=== PATIENT | male | born 1950 | race Caucasian/White ===

== ENCOUNTER 2019-05-18 14:41 | Inpatient (IN) | payer MEDICARE, OTHER ==
[~2019-05-18] VITALS: Ht 177.8 cm; Wt 100.2 kg
[~2019-05-18 14:41] MED LIST: Percocet 7.5-31 EACH PO
[2019-05-18 15:23] LABS: BASOPHILS ABSOLUTE AUTO 0.05 K/mm3 (0.00-0.23); BASOPHILS PERCENT AUTO 0 % (0-2); EOSINOPHILS ABSOLUTE AUTO 0.01 K/mm3 (0.00-0.68); EOSINOPHILS PERCENT AUTO 0 % (0-6); Hematocrit 41.8 % (37.0-53.0); Hemoglobin 14.2 g/dL (13.5-17.5); IMMATURE GRAN PERCENT AUTO 1 % (0-1); LYMPHOCYTES ABSOLUTE AUTO 1.03 K/mm3 (0.84-5.20); LYMPHOCYTES PERCENT AUTO 3 % (21-46); MONOCYTES ABSOLUTE AUTO 2.31 K/mm3 (0.16-1.47); MONOCYTES PERCENT AUTO 8 % (4-13); Mean Corpuscular HGB 31.6 pg (26.0-34.0); Mean Corpuscular Volume 93 fL (80-100); Mean Platelet Volume 9.5 fL (9.1-12.4); NEUTROPHILS PERCENT AUTO 88 % (41-73); Platelet Count 250 K/mm3 (150-400); RDW Coefficient Variation 12.9 % (11.7-14.2); RDW Standard Deviation 44.3 fL (35.1-46.3); Red Blood Cell Count 4.49 M/mm3 (4.30-5.90)
[2019-05-18 15:35] LABS: Alanine Aminotransfer (ALT/SGP 19 U/L (12-78); Albumin, Blood 3.3 g/dL (3.4-5.0); Albumin/Globulin Ratio 0.8 (0.8-1.8); Alk Phos 81 U/L (50-136); Anion Gap 9 mmol/L (6-16); Aspartate Aminotrans (AST/SGOT 7 U/L (12-37); Blood Urea Nitrogen 22 mg/dL (8-24); Bun/Creatinine Ratio 22.5 (12.0-20.0); CO2, Blood 24 mmol/L (21-32); Calcium, Blood 9.1 mg/dL (8.5-10.1); Chloride, Blood 104 mmol/L (98-108); Creatinine, Blood 0.98 mg/dL (0.60-1.20); Globulin, Blood 4.4 g/dL (2.2-4.0); Glomerular Filtration Rate >60 (60-); Glucose, Blood 117 mg/dL (70-99); Potassium, Blood 3.8 mmol/L (3.5-5.5); Sodium, Blood 137 mmol/L (136-145); Total Protein, Blood 7.7 g/dL (6.4-8.2)
[2019-05-18 15:37] LABS: Source, Urine Catheter
[2019-05-18 16:37] LABS: Bilirubin, Urine Neg (Neg); Blood, Urine 1+ (Neg); Glucose Qualitative, Urine Neg (Neg); Ketones, Urine 3+ (Neg); Leukocyte Esterase, Urine Neg (Neg); Nitrite, Urine Neg (Neg); Protein, Urine 2+ (Neg); Specific Gravity, Urine 1.005 (1.003-1.022); Urobilinogen, Urine 3+ (Normal)
[2019-05-18 16:45] LABS: Appearance, Urine Clear (Clear); Color, Urine Yellow (P-Yellow)
[2019-05-18 16:46] LABS: Red Blood Cells, Urine 0-2 /hpf (0-2); Squamous Epithelial Cells Rare /hpf (Few); White Blood Cells, Urine 0-2 /hpf (0-5)
[2019-05-18 16:47] LABS: Bacteria Rare /hpf
[2019-05-18] MEDS ORDERED: LOSA25 PO (17:36)
--- NOTE | 2019-05-19 00:40 | NUR ---
PATIENT ARRIVED FROM THE ED @2037. HE IS INTERACTING WITH STAFF AND A GOOD HISTORIAN. STATES THAT HE IS HAVING PAIN IN HIS LOWER ABDOMEN FROM HIP TO HIP, HE STATED IT IS "NIKKI" IN NATURE, AND THAT IT WILL BE INTENSE THEN LET UP. hE HAS A HEALING HEAD INCISION FROM APRIL 2019 WHERE HE HAD A BENIGN TUMOR REMOVED. hE STATED THAT HE HAS BEEN IN PHYSICAL THERAPY AND GAINING HIS STRENGTH AND AGILITY.
[2019-05-19 03:49] LABS: BASOPHILS ABSOLUTE AUTO 0.03 K/mm3 (0.00-0.23); BASOPHILS PERCENT AUTO 0 % (0-2); EOSINOPHILS ABSOLUTE AUTO 0.01 K/mm3 (0.00-0.68); EOSINOPHILS PERCENT AUTO 0 % (0-6); Hematocrit 36.1 % (37.0-53.0); Hemoglobin 12.1 g/dL (13.5-17.5); IMMATURE GRAN ABSOLUTE AUTO 0.17 K/mm3 (0.00-0.10); IMMATURE GRAN PERCENT AUTO 1 % (0-1); LYMPHOCYTES ABSOLUTE AUTO 0.59 K/mm3 (0.84-5.20); LYMPHOCYTES PERCENT AUTO 3 % (21-46); MONOCYTES ABSOLUTE AUTO 1.39 K/mm3 (0.16-1.47); MONOCYTES PERCENT AUTO 8 % (4-13); Mean Corpuscular HGB 30.9 pg (26.0-34.0); Mean Corpuscular HGB Conc 33.5 g/dL (31.5-36.5); Mean Corpuscular Volume 92 fL (80-100); Mean Platelet Volume 9.6 fL (9.1-12.4); NEUTROPHILS ABSOLUTE AUTO 16.07 K/mm3 (1.96-9.15); NEUTROPHILS PERCENT AUTO 88 % (41-73); Platelet Count 197 K/mm3 (150-400); RDW Coefficient Variation 13.1 % (11.7-14.2); RDW Standard Deviation 44.2 fL (35.1-46.3); Red Blood Cell Count 3.91 M/mm3 (4.30-5.90); White Blood Cell Count 18.26 K/mm3 (4.00-11.30)
[2019-05-19 04:07] LABS: Anion Gap 7 mmol/L (6-16); Blood Urea Nitrogen 15 mg/dL (8-24); Bun/Creatinine Ratio 19.4 (12.0-20.0); CO2, Blood 25 mmol/L (21-32); Calcium, Blood 8.2 mg/dL (8.5-10.1); Chloride, Blood 105 mmol/L (98-108); Creatinine, Blood 0.77 mg/dL (0.60-1.20); Glomerular Filtration Rate >60 (60-); Glucose, Blood 111 mg/dL (70-99); Potassium, Blood 3.8 mmol/L (3.5-5.5); Sodium, Blood 137 mmol/L (136-145)
--- NOTE | 2019-05-19 06:04 | NUR ---
PATIENT IS EXPERIENCING 6/10 PAIN IN HIS ABDOMEN. HE HAS BEEN ABLE TO AMBULATE TO THE SEVERAL TIMES, 2 SMALL BM'S AND VOIDING. hE IS PLEASANT AND TALKATIVE. SCD'S ON WHILE IN BED. CALL LIGHT IN REACH.
--- NOTE | 2019-05-19 07:57 | NUR ---
pt sweating afebrile at this time pt stated pain is min 2-3/10 no nausea awaiting surg npo prn mouth care
--- NOTE | 2019-05-19 12:00 | NUR ---
dr lima ok cl diet no surg cont with iv abx
--- NOTE | 2019-05-19 15:56 | NUR ---
po norco given pt stated pain is min feeling a little better compared to this am
--- NOTE | 2019-05-19 18:00 | NUR ---
pt visiting with had questions re medications
--- NOTE | 2019-05-20 06:37 | NUR ---
SUMMARY PT HAS CONTINUED INTERMITTENTLY FEBRILE. REPORTS PAIN MEDS EFFECTIVE. VERB SLEEPING SATISF. VOIDING WITHOUT DIFF.TOLERATING PO LIQ.
--- NOTE | 2019-05-20 13:28 | NUR ---
dr lima in to see pt.
--- NOTE | 2019-05-20 19:24 | NUR ---
SUMMARY NO ACUTE CHANGES T/O SHIFT. MEDICATED ONCE DURING SHIFT FOR NAUSEA AND TWICE DURING SHIFT FOR PAIN PER ORDERS. PT INDEPENDENT IN ROOM. IV INFUSING W/O DIFFICULTY. CALL LIGHT IN REACH.
[2019-05-21 04:15] LABS: BASOPHILS ABSOLUTE AUTO 0.03 K/mm3 (0.00-0.23); BASOPHILS PERCENT AUTO 0 % (0-2); EOSINOPHILS ABSOLUTE AUTO 0.07 K/mm3 (0.00-0.68); EOSINOPHILS PERCENT AUTO 1 % (0-6); Hematocrit 32.1 % (37.0-53.0); Hemoglobin 10.8 g/dL (13.5-17.5); IMMATURE GRAN ABSOLUTE AUTO 0.08 K/mm3 (0.00-0.10); IMMATURE GRAN PERCENT AUTO 1 % (0-1); LYMPHOCYTES ABSOLUTE AUTO 0.51 K/mm3 (0.84-5.20); LYMPHOCYTES PERCENT AUTO 4 % (21-46); MONOCYTES ABSOLUTE AUTO 1.09 K/mm3 (0.16-1.47); MONOCYTES PERCENT AUTO 9 % (4-13); Mean Corpuscular HGB 31.1 pg (26.0-34.0); Mean Corpuscular HGB Conc 33.6 g/dL (31.5-36.5); Mean Corpuscular Volume 93 fL (80-100); Mean Platelet Volume 9.7 fL (9.1-12.4); NEUTROPHILS ABSOLUTE AUTO 9.99 K/mm3 (1.96-9.15); NEUTROPHILS PERCENT AUTO 85 % (41-73); Platelet Count 174 K/mm3 (150-400); RDW Coefficient Variation 13.1 % (11.7-14.2); RDW Standard Deviation 44.3 fL (35.1-46.3); Red Blood Cell Count 3.47 M/mm3 (4.30-5.90); White Blood Cell Count 11.77 K/mm3 (4.00-11.30)
[2019-05-21 04:34] LABS: Anion Gap 6 mmol/L (6-16); Blood Urea Nitrogen 9 mg/dL (8-24); Bun/Creatinine Ratio 11.8 (12.0-20.0); CO2, Blood 30 mmol/L (21-32); Calcium, Blood 8.1 mg/dL (8.5-10.1); Chloride, Blood 100 mmol/L (98-108); Creatinine, Blood 0.76 mg/dL (0.60-1.20); Glomerular Filtration Rate >60 (60-); Glucose, Blood 145 mg/dL (70-99); Potassium, Blood 3.3 mmol/L (3.5-5.5); Sodium, Blood 136 mmol/L (136-145)
--- NOTE | 2019-05-21 06:42 | NUR ---
PT HAD NO ACUTE CHANGES T/O NIGHT. T-MAX 1002. OTHER VSS. PAIN MGD PER EMAR W/REP RELIEF. PT HAD NO C/O N/V. PT VOIDING URINE W/O DIFFICULTY, IS PASSING FLATUS, NO BM THIS SHIFT. IVF AND ABX CONT PER ORDERS. PT USING CALL LIGHT FOR ASSISTANCE, WILL CONT TO MONITOR UNTIL REP GIVEN TO ONCOMING RN.
--- NOTE | 2019-05-21 17:21 | NUR ---
SUMMARY NO ACUTE CHANGES T/O SHIFT. MEDICATED PT PER ORDERS FOR PAIN. PT TOOK ONE NORCO THIS AFTRNOON AND REQUIRED SECOND APPROXIMTELY TWO HOURS LATER DUE TO BREAKTHROUGH PAIN. REQUESTS TWO NORCO PER ORDERS NEXT TIME PAIN MEDS AVAILABLE. INDEPENDENT IN ROOM. IV INFUSING W/O DIFFICULTY. USES CALL LIGHT APPROPRIATELY.
--- NOTE | 2019-05-22 00:30 | NUR ---
TEMP: PT TEMP 102.3. PT REP FEELING HOT AND HAVING A HEADACHE. ROOM TEMP TURNED DOWN, BLANKET REMOVED, COOL CLOTH PLACED ON FOREHEAD. TORADOL GIVEN. WILL MONITOR FOR EFFECTIVENESS.
--- NOTE | 2019-05-22 07:23 | NUR ---
PT T-MAX 102.3, RESOLVED W/MEDS AND NON PHARM COOLING MEASURES. OTHER VSS. PAIN MGD W/2 NORCO+TORADOL W/REP RELIEF. ABD MUCH MORE FIRM AND DISTENDED THIS AM. PT GERMANIA CLEAR LIQ, NO C/O N/V, IS PASSING FLATUS. PT AMB INDEP, IS USING CALL LIGHT FOR ASSISTANCE. CLINIMIX AND ABX CONT PER ORDERS. REP GIVEN TO DAY RN.
--- NOTE | 2019-05-22 17:38 | NUR ---
SHIFT SUMMARY PAIN HAS BEEN MANAGED, HAS BEEN UP IND IN THE ROOM, VOIDING WELL, PASSING GAS BUT DECLINES BM. CONTINUES TO BE DISTENDED. PLAN FOR CT IN AM.
--- NOTE | 2019-05-22 21:13 | NUR ---
PT GIVEN FIRST DOSE OF ORAL CONTRAST.
--- NOTE | 2019-05-22 21:27 | NUR ---
REPORT GIVEN TO BIJAN MENJIVAR
--- NOTE | 2019-05-22 21:30 | NUR ---
2130: RECEIVED BEDSIDE REPORT FROM PREVIOUS RN AND ASSUMED CARE. PT RESTING COMFORTABLY IN BED WITH CALL LIGHT IN REACH AND DENIES NEED @ THIS TIME.
[2019-05-23 04:27] LABS: BASOPHILS ABSOLUTE AUTO 0.03 K/mm3 (0.00-0.23); BASOPHILS PERCENT AUTO 0 % (0-2); EOSINOPHILS ABSOLUTE AUTO 0.09 K/mm3 (0.00-0.68); EOSINOPHILS PERCENT AUTO 1 % (0-6); Hematocrit 32.3 % (37.0-53.0); Hemoglobin 10.6 g/dL (13.5-17.5); Mean Corpuscular HGB 31.3 pg (26.0-34.0); Mean Corpuscular HGB Conc 32.8 g/dL (31.5-36.5); Mean Corpuscular Volume 95 fL (80-100); Mean Platelet Volume 9.6 fL (9.1-12.4); Platelet Count 214 K/mm3 (150-400); RDW Coefficient Variation 12.8 % (11.7-14.2); RDW Standard Deviation 45.2 fL (35.1-46.3); Red Blood Cell Count 3.39 M/mm3 (4.30-5.90); White Blood Cell Count 10.93 K/mm3 (4.00-11.30)
[2019-05-23 04:29] LABS: IMMATURE GRAN ABSOLUTE AUTO 0.08 K/mm3 (0.00-0.10); IMMATURE GRAN PERCENT AUTO 1 % (0-1); LYMPHOCYTES ABSOLUTE AUTO 0.88 K/mm3 (0.84-5.20); LYMPHOCYTES PERCENT AUTO 8 % (21-46); MONOCYTES ABSOLUTE AUTO 1.21 K/mm3 (0.16-1.47); MONOCYTES PERCENT AUTO 11 % (4-13); NEUTROPHILS ABSOLUTE AUTO 8.64 K/mm3 (1.96-9.15); NEUTROPHILS PERCENT AUTO 79 % (41-73)
[2019-05-23 04:44] LABS: Anion Gap 4 mmol/L (6-16); Blood Urea Nitrogen 11 mg/dL (8-24); Bun/Creatinine Ratio 13.3 (12.0-20.0); CO2, Blood 32 mmol/L (21-32); Calcium, Blood 8.2 mg/dL (8.5-10.1); Chloride, Blood 100 mmol/L (98-108); Creatinine, Blood 0.83 mg/dL (0.60-1.20); Glomerular Filtration Rate >60 (60-); Glucose, Blood 140 mg/dL (70-99); Potassium, Blood 3.9 mmol/L (3.5-5.5); Sodium, Blood 136 mmol/L (136-145)
--- NOTE | 2019-05-23 06:10 | NUR ---
0610: PT TO IMAGING VIA WC WITH LAST 240ML CUP OF IODINE CONTRAST. LINENS CHANGED PER PT REQUEST. AWAIT RETURN.
--- NOTE | 2019-05-23 07:24 | NUR ---
SUMMARY: ADMIT DAY [address] JONES SERVICE. VSS, AFEBRILE, VOIDING DARK YELLOW URINE. CONTINUE CLINIMIX INFUSION AND TOLERATING CLEAR LIQ DIET. PAIN WELL CONTROLLED WITH 1 TAB NORCO. PT HAD REPEAT CT SCAN THIS MORNING AND AWAIT FINDINGS.
--- NOTE | 2019-05-23 19:04 | NUR ---
SHIFT SUMMARY PT HAS DONE WELL TODAY. PASSING GAS BUT DECLINES BM. PAIN WELL MANAGED. PLAN FOR PICC LINE PLACED TOMORROW.
--- NOTE | 2019-05-24 19:55 | NUR ---
SHIFT SUMMARY PT UNSUCCESSFULL TO GET PICC AFTER 2 ATTEMPTS. HAD BM x 3. UP IN ROOM BUT NOT INTERESTED IN WALKING IN HALLWAYS. PAIN WELL MANAGED. AFEBRILE.
[2019-05-25 05:27] LABS: Triglycerides 216 mg/dL (30-160)
--- NOTE | 2019-05-25 06:17 | NUR ---
PT VSS T/O NIGHT; T-MAX 99.1, OTHER VSS. PAIN MGD PER EMAR W/REP RELIEF. ABD MOD DISTENDED, TENDER IN RLQ. PT GERMANIA CLEAR LIQ PO, NO C/O N/V. PT PASSING FLATUS, IS VOIDING URINE W/O DIFFICULTY. CLINIMIX AND ABX CONT PER ORDERS. PT UP INDEP IN ROOM, IS USING CALL LIGHT FOR ASSISTANCE, WILL CONT TO MONITOR UNTIL REP GIVEN TO ONCOMING RN.
--- NOTE | 2019-05-25 13:26 | NUR ---
PT REFUSING TO AMBULATE IN [place] W/DENTAL ASSOCIATE REPORTING FEELING POORLY. ENCOURAGED PT TO GO FOR WALK TO GET OUT OF ROOM. REFUSED WHEN DENTAL ASSOCIATE WENT IN TO AMBULATE W/HIM.
--- NOTE | 2019-05-25 17:56 | NUR ---
SUMMARY NO ACUTE CHANGES T/O SHIFT. PT APPEARS WITHDRAWN. SUGGESTED PT AMBULATE IN [place] TO GET OUT OF ROOM; PT DECLINED. MEDICATED PER ORDERS FOR PAIN TO LOWER ABD. PT SLEPT OFF AND ON DURING SHIFT. S.O. NOW AT BEDSIDE. PT INDEPENDENT IN ROOM.
--- NOTE | 2019-05-26 06:26 | NUR ---
PT VSS T/O NIGHT. NO CHANGES IN ABD DISTENTION. PT HAD NO C/O N/V, REP STOOL BECOMING SOMEWHAT MORE FORMED AFTER FULL LIQ PO. PAIN MGD W/TORADOL W/REP RELIEF. CLINIMIX CONT PER ORDERS. PT AMB INDEP IN ROOM, AMB OUTSIDE OF ROOM ENCOURAGED FOR PHYSICAL AND EMOTIONAL WELLBEING. PT USING CALL LIGHT FOR ASSISTANCE, WILL CONT TO MONITOR UNTIL REP GIVEN TO ONCOMING RN.
--- NOTE | 2019-05-26 09:54 | NUR ---
PT IN SHOWER
--- NOTE | 2019-05-26 15:29 | NUR ---
DEPRESSED PT STATES FEELING DEPRESSED. ENCOURAGED PT TO OPEN SHADES AND GO FOR WALK TO GET OUT OF ROOM. PT STATED WOULD AMBULATE IN HALLS W/SPOUSE WHEN SHE ARRIVES.
--- NOTE | 2019-05-26 15:58 | NUR ---
TURNED OVER CARE TO BRENDON Lyon RN.
--- NOTE | 2019-05-26 16:30 | NUR ---
assumed care of patient. patient denies any needs at this time
--- NOTE | 2019-05-26 18:15 | NUR ---
SUMMARY PATIENT REPORTS PAIN IS CURRENTLY 1/10. DENIES NAUSEA- GERMANIA SMALL AMOUNTS OF FULL LIQUID WITHOUT NAUSEA.
--- NOTE | 2019-05-27 04:26 | NUR ---
PATIENT HAS RESTED MOST OF THE NIGHT, REPOSITIONING SELF NEEDED, INDEPENDENT TO THE BR. ABDOMEN IS MILDLY DESTENDED WITH ACTIVE BTS. 18 G IV PLACED IN THE RT FA, LT FA/AC IV REMOVED FOR PAIN AT THE SITE.
--- NOTE | 2019-05-27 15:55 | NUR ---
SHIFT SUMMARY NO ACUTE CHANGES THIS SHIFT. PT CONTINUES TO REPORT THAT HE FEELS BETTER. VSS. PT DENIES NEED FOR PAIN MEDICATIONS T/O SHIFT. GERMANIA FULL LIQ DIET AND ADVANCING TO REG DIET FOR DINNER. PT PASSING FLATUS AND HAVING BMS. INDEP IN ROOM. CLINIMX/LIPIDS INFUSING PER ORDERS. PT USES CALL LIGHT APPROPRIATELY.
--- NOTE | 2019-05-28 05:37 | NUR ---
PATIENT HAS RESTED QUIETLY THROUGHT SHIFT. NO ACUTE CHANGES IN CONDITION. UP IN ROOM WHEN NEEDED. HAS DENIED PAIN AND NEED FOR MEDICATION THROUGHOUT THE SHIFT.
--- NOTE | 2019-05-28 16:04 | NUR ---
SHIFT SUMMARY NO ACUTE CHANGES THIS SHIFT. PT CONT TO DENY PAIN. PT GERMANIA REG DIET. IV IS SL. PT CONT TO PAS GAS HAVE BMS. INDEP IN ROOM. USES CALL LIGHT APPROPRIATELY. PLAN IS FOR PT TO DISCHARGE HOME TOMORROW.
[2019-05-29] MEDS ORDERED: AMOCLA875 PO (12:22)
--- NOTE | 2019-05-29 13:31 | NUR ---
REVIEWED DC INSTRUCTIONS W/PT. VERBALIZED UNDERSTANDING OF DC INSTRUCTIONS. CALLED PRESCRIPTION TO [facility] PER PT REQUEST. PT AWAITING RIDE. CALL LIGHT IN REACH.
== END 2019-05-29 13:58 | disposition home or self-care (01) | DRG 871 ==
LOC: ER 14:41 → SURS 17:16
PROVIDERS: Emergency Medicine; ADMIT Surgery
DX: A41.9 Sepsis, unspecified organism (principal); K35.32 Acute appendicitis with perforation, localized peritonitis, and gangrene, without abscess; I10 Essential (primary) hypertension; Z85.828 Personal history of other malignant neoplasm of skin; Z87.891 Personal history of nicotine dependence
CPT/HCPCS: 36415; 74177; 80048; 80053; 81001; 83605; 84478; 85025; 87040; 87086; 93005; 93010; 96361; 96365-59; 96375; 99285-25; A9270-GY; J1885; J2405; J2543; J3010; J7120; Q9967

== ENCOUNTER 2020-05-07 05:33 | Inpatient (IN) | payer MEDICARE, OTHER ==
[~2020-05-07] VITALS: Ht 177.8 cm; Wt 87.0 kg
[~2020-05-07 05:33] MED LIST changes: +AMOCLA875 PO; +LOSA25 PO
[2020-05-07 06:42] LABS: BASOPHILS ABSOLUTE AUTO 0.04 K/mm3 (0.00-0.23); BASOPHILS PERCENT AUTO 1 % (0-2); EOSINOPHILS ABSOLUTE AUTO 0.04 K/mm3 (0.00-0.68); EOSINOPHILS PERCENT AUTO 1 % (0-6); Hematocrit 43.5 % (37.0-53.0); Hemoglobin 14.3 g/dL (13.5-17.5); IMMATURE GRAN ABSOLUTE AUTO 0.03 K/mm3 (0.00-0.10); IMMATURE GRAN PERCENT AUTO 0 % (0-1); LYMPHOCYTES ABSOLUTE AUTO 0.87 K/mm3 (0.84-5.20); LYMPHOCYTES PERCENT AUTO 10 % (21-46); MONOCYTES ABSOLUTE AUTO 0.95 K/mm3 (0.16-1.47); MONOCYTES PERCENT AUTO 11 % (4-13); Mean Corpuscular HGB 28.4 pg (26.0-34.0); Mean Corpuscular HGB Conc 32.9 g/dL (31.5-36.5); Mean Corpuscular Volume 86 fL (80-100); Mean Platelet Volume 9.3 fL (9.1-12.4); NEUTROPHILS ABSOLUTE AUTO 6.58 K/mm3 (1.96-9.15); NEUTROPHILS PERCENT AUTO 77 % (41-73); Platelet Count 320 K/mm3 (150-400); RDW Coefficient Variation 13.5 % (11.7-14.2); RDW Standard Deviation 42.5 fL (35.1-46.3); Red Blood Cell Count 5.04 M/mm3 (4.30-5.90); White Blood Cell Count 8.51 K/mm3 (4.00-11.30)
[2020-05-07 06:54] LABS: International Normalized Ratio 1.02; Prothrombin Time Results 10.9 Sec (9.7-11.5)
[2020-05-07 07:07] LABS: Alanine Aminotransfer (ALT/SGP 13 U/L (12-78); Albumin, Blood 3.2 g/dL (3.4-5.0); Albumin/Globulin Ratio 0.8 (0.8-1.8); Alk Phos 84 U/L (50-136); Anion Gap 7 mmol/L (6-16); Aspartate Aminotrans (AST/SGOT 12 U/L (12-37); Bilirubin, Total 0.6 mg/dL (0.1-1.0); Blood Urea Nitrogen 14 mg/dL (8-24); Bun/Creatinine Ratio 16.8 (12.0-20.0); CO2, Blood 26 mmol/L (21-32); Calcium, Blood 8.5 mg/dL (8.5-10.1); Chloride, Blood 107 mmol/L (98-108); Creatinine, Blood 0.83 mg/dL (0.60-1.20); Globulin, Blood 3.9 g/dL (2.2-4.0); Glomerular Filtration Rate >60 (60-); Glucose, Blood 119 mg/dL (70-99); Potassium, Blood 3.4 mmol/L (3.5-5.5); Sodium, Blood 140 mmol/L (136-145); Total Protein, Blood 7.1 g/dL (6.4-8.2)
--- NOTE | 2020-05-07 17:16 | NUR ---
EPIDURAL AT APPROX 1630, PT REPORTED UNCONTROLLABLE SHIVERING AND DENIED BEING COLD. VSS AND AFEBRILE. DR. DAVIDSON ROUNDING ON UNIT AND ASSESSED PT. EPIDURAL INFUSION TURNED OFF AT 1655 PER VERBAL ORDER BY DR. DAVIDSON. DR. DAVIDSON NOTIFIED ANESTHESIOLOGIST AND ANESTHESIA TO REMOVE EPIDURAL TOMORROW MORNING. SINCE EPIDURAL TURNED OFF, PT REPORTS DECREASED SHIVERING. PT LEVEL OF SENSATION IMPROVING AT T6-L2. PT ABLE TO WIGGLE TOES AND MOVE BLE SLIGHTLY. PT CONT TO DENY PAIN. NEW ORDERS BEING PLACED BY DR. DAVIDSON. WILL CONT TO MONITOR.
--- NOTE | 2020-05-07 17:26 | NUR ---
SHIFT SUMMARY S/P LAP COLOSTOMY. EPIDURAL RECENTLY TURNED OFF (SEE EPIDURAL NOTE) AND ANESTHESIA TO COME IN THE MORNING TO REMOVE CATHETER. DERMATOMES IMPROVING AT T6-L2. PT NOW ABLE TO WIGGLE TOES AND MOVE BLE SLIGHTLY. PT DENIES PAIN. LAP SITES TO ABD X3 REMAIN CDI. COLOSTOMY WITH MODERATE AMOUNTS OF BROWN LIQ STOOL. IVF + ABX PER ORDERS. PT GERMANIA ICE CHIPS. AT BEDSIDE FOR SUPPORT. CALL LIGHT WITHIN REACH.
--- NOTE | 2020-05-08 04:16 | NUR ---
SHIFT SUMMARY: PT POD#1 FOR LAP COLOSTOMY. LAP SITE X3 C/D/I WITH SCANT AMOUNT OF DRY BLOODY DRG TO GAUZE. OSTOMY PRODUCING FLATUS AND MODERATE AMOUNT OF LIQ BROWN STOOL. EMPTIED APPROX 400CC. PAIN BEING MANAGED WITH 25MCG FENTANYL. FEBRILE IN BEGINNING OF THE SHIFT. MEDICATED WITH TORADOL AND TYLENOL WHICH WAS EFFECTIVE. EPIDURAL REMAINS IN PLACE BUT IS NOT BEING USED. PLAN FOR ANESTHESIOLOGIST TO PULL IT OUT TODAY. PT GERMANIA SMALL AMOUNTS OF SIPS+CHIPS. DENIES N/V. FLUIDS INFUSING PER EMAR. MURRAY DRAINING DARK KRIS URINE WITH MINIMAL OUTPUT THIS SHIFT. PT EDUCATED ON OSTOMY CARE TO INCLUDE APPLIANCE CHANGE AND BURPING OF BAG.
[2020-05-08 04:17] LABS: BASOPHILS ABSOLUTE AUTO 0.03 K/mm3 (0.00-0.23); BASOPHILS PERCENT AUTO 0 % (0-2); EOSINOPHILS PERCENT AUTO 0 % (0-6); Hematocrit 45.8 % (37.0-53.0); Hemoglobin 14.6 g/dL (13.5-17.5); IMMATURE GRAN ABSOLUTE AUTO 0.02 K/mm3 (0.00-0.10); IMMATURE GRAN PERCENT AUTO 0 % (0-1); LYMPHOCYTES ABSOLUTE AUTO 0.57 K/mm3 (0.84-5.20); LYMPHOCYTES PERCENT AUTO 6 % (21-46); MONOCYTES ABSOLUTE AUTO 1.14 K/mm3 (0.16-1.47); MONOCYTES PERCENT AUTO 12 % (4-13); Mean Corpuscular HGB 27.9 pg (26.0-34.0); Mean Corpuscular HGB Conc 31.9 g/dL (31.5-36.5); Mean Corpuscular Volume 88 fL (80-100); Mean Platelet Volume 9.2 fL (9.1-12.4); NEUTROPHILS ABSOLUTE AUTO 8.07 K/mm3 (1.96-9.15); NEUTROPHILS PERCENT AUTO 82 % (41-73); Platelet Count 284 K/mm3 (150-400); RDW Coefficient Variation 13.8 % (11.7-14.2); RDW Standard Deviation 44.2 fL (35.1-46.3); Red Blood Cell Count 5.23 M/mm3 (4.30-5.90); White Blood Cell Count 9.83 K/mm3 (4.00-11.30)
[2020-05-08 04:36] LABS: Anion Gap 5 mmol/L (6-16); Blood Urea Nitrogen 16 mg/dL (8-24); Bun/Creatinine Ratio 16.2 (12.0-20.0); CO2, Blood 28 mmol/L (21-32); Calcium, Blood 7.8 mg/dL (8.5-10.1); Chloride, Blood 108 mmol/L (98-108); Creatinine, Blood 0.99 mg/dL (0.60-1.20); Glomerular Filtration Rate >60 (60-); Glucose, Blood 128 mg/dL (70-99); Potassium, Blood 3.9 mmol/L (3.5-5.5); Sodium, Blood 141 mmol/L (136-145)
--- NOTE | 2020-05-08 07:55 | NUR ---
PT REPORTS PAIN 04/19 INT REQ PAIN MEDS PT EPIDURAL IS IN BUT MED IS TURNED OFF DISCUSSED OSTOMY CARE WITH PT WILL BRING HIM HANDOUTS TODAY AND SUPPLIES TO PRACTICE WITH PT PASSING FLATUS AND STOOL WHILE IN THE ROOM MIO FARIAS PT STATED HE STILL FEELS DIST NO NAUSEA
--- NOTE | 2020-05-08 10:00 | NUR ---
OSTOMY TEACHING DONE WITH PT AND HIS SUPPLIES GIVEN
--- NOTE | 2020-05-08 11:41 | NUR ---
update given to anesthesia to come and see pt to determine pulling epidural or restarting it
--- NOTE | 2020-05-08 12:13 | NUR ---
NEW OSTOMY APPLIANCE PLACED PT ASKED QUESTIONS AT BEDSIDE ALSO WATCHED
--- NOTE | 2020-05-08 16:47 | NUR ---
talked to dr henderson by to see pt req a sales development coordinator for the pain
--- NOTE | 2020-05-09 05:04 | NUR ---
POD 2 S/P LAP COLOSTOMY. PT HAS DONE WELL DURING NIGHT. PAIN IS MANAGED WELL, NO N/V, OSTOMY PRODUCING STOOL AND FLATUS. HAS BEEN TOLERATING SIP AND CHIPS. LAP SITE CDI. VSS AND AFEBRILE THIS MORNING. WILL DC MURRAY THIS AM. PLAN ON INCREASING MOBILITY TODAY AND CONT TO ENCOURAGE TCDB AND I.S. CALL LIGHT IN REACH.
--- NOTE | 2020-05-09 14:40 | NUR ---
Patient is lying in bed and and alert. Patient's , Litzy, is bedside. Patient is emotional and shares personal stories about family, his fears and his hopes. Both patient and Litzy admit to not processing the news and prognosis well. They explain about the complicated grief they feel due to multiple loss of family memebers, the sudden medical issues that Litzy's mom is dealing with and patient's recent medical conditions. Patient talks about his nani in a very raw and honest way and definately finds hope and strength in it. I will continue to help patient and Litzy process what it will all mean to them going forward and help equip them with the emotional and spiritual resources they need. I normalize patient's experience, reinforce helpful attitudes and practices and provide therapeutic listening, pastoral licensed professional counselor and prayer. Patient responds well and shows signs of being encouraged and more hopeful. I will continue to remain available to patient and family.
--- NOTE | 2020-05-09 18:13 | NUR ---
SHIFT SUMMARY PT A&OX4, VSS, POD2 DIVERTING LOOP COLOSTOMY W/GOOD OUTPUT. PAIN MANAGED WITH FENT GAS PIT WORKER. GERMANIA SIPS AND ICE CHIPS. VOIDING WELL. AMB SBA. WILL REPORT TO ONCOMING KELLY THAKKAR.
--- NOTE | 2020-05-10 05:59 | NUR ---
SHIFT SUMMARY HAS RESTED WELL THIS SHIFT. HAS HAD NO FEVER UNTIL AM VS SHOWING 100.1 TEMPORALLY. WILL MEDICATE PER EMAR. LLQ COLOSTOMY IS PRODUCING BROWN LIQUID STOOL AND FLATUS. ABLE TO AMBULATE TO BATHROOM WITH STANDBY ASSIST, TOLERATING WELL. DENIES PAIN, DISCOMFORT, OR FURTHER NEEDS AT THIS TIME. SAFETY MEASURES IN PLACE. WILL CONTINUE TO MONITOR.
[2020-05-10 08:35] LABS: BASOPHILS ABSOLUTE AUTO 0.01 K/mm3 (0.00-0.23); BASOPHILS PERCENT AUTO 0 % (0-2); EOSINOPHILS ABSOLUTE AUTO 0.05 K/mm3 (0.00-0.68); EOSINOPHILS PERCENT AUTO 0 % (0-6); Hematocrit 39.7 % (37.0-53.0); IMMATURE GRAN ABSOLUTE AUTO 0.13 K/mm3 (0.00-0.10); IMMATURE GRAN PERCENT AUTO 1 % (0-1); LYMPHOCYTES ABSOLUTE AUTO 0.52 K/mm3 (0.84-5.20); LYMPHOCYTES PERCENT AUTO 4 % (21-46); MONOCYTES ABSOLUTE AUTO 1.14 K/mm3 (0.16-1.47); MONOCYTES PERCENT AUTO 8 % (4-13); Mean Corpuscular HGB 28.1 pg (26.0-34.0); Mean Corpuscular HGB Conc 32.7 g/dL (31.5-36.5); Mean Corpuscular Volume 86 fL (80-100); Mean Platelet Volume 9.2 fL (9.1-12.4); NEUTROPHILS ABSOLUTE AUTO 12.55 K/mm3 (1.96-9.15); NEUTROPHILS PERCENT AUTO 87 % (41-73); Platelet Count 283 K/mm3 (150-400); RDW Coefficient Variation 14.1 % (11.7-14.2); RDW Standard Deviation 44.8 fL (35.1-46.3); Red Blood Cell Count 4.62 M/mm3 (4.30-5.90)
--- NOTE | 2020-05-10 12:58 | NUR ---
Spiritual care visit conducted. Upon receiving a patient request for spiritual care, I visit patient. Patient talks about personal struggles centered around finding himself in medical circustances that have deep impact on his family and how they effect how he sees himself. The spiritual plan of care is to help patient explore new sources of dignity and value. I listen empathically, and provide pastoral counselor camp and prayer. Patient responds well and shows signs of increased courage and sense of self worth. I will continue to remain available to patient and family.
--- NOTE | 2020-05-10 14:12 | NUR ---
1245 TO RADIOLOGY PER DYLON
--- NOTE | 2020-05-10 15:34 | NUR ---
1515 returned to room from radiology, drain in place with 500 ml clear lizzette fluid emptied at this time
--- NOTE | 2020-05-10 18:28 | NUR ---
SUMMARY PT REPORTS GOOD PAIN CONTROL WITIH PODIATRIC TECHNICIAN. ABD DRAIN WITH 1700 ML CLEAR KRIS OUTPUT SINCE PLACED. PT TEARFUL AT TIMES BUT REPORTS HE WISHES TO HAVE CHEMO AND FIGHT HIS CANCER
[2020-05-11 04:45] LABS: BASOPHILS ABSOLUTE AUTO 0.02 K/mm3 (0.00-0.23); BASOPHILS PERCENT AUTO 0 % (0-2); EOSINOPHILS ABSOLUTE AUTO 0.07 K/mm3 (0.00-0.68); EOSINOPHILS PERCENT AUTO 1 % (0-6); Hematocrit 40.1 % (37.0-53.0); IMMATURE GRAN ABSOLUTE AUTO 0.06 K/mm3 (0.00-0.10); IMMATURE GRAN PERCENT AUTO 1 % (0-1); LYMPHOCYTES ABSOLUTE AUTO 0.51 K/mm3 (0.84-5.20); LYMPHOCYTES PERCENT AUTO 4 % (21-46); MONOCYTES PERCENT AUTO 11 % (4-13); Mean Corpuscular HGB 28.1 pg (26.0-34.0); Mean Corpuscular HGB Conc 32.4 g/dL (31.5-36.5); Mean Corpuscular Volume 87 fL (80-100); Mean Platelet Volume 10.2 fL (9.1-12.4); NEUTROPHILS ABSOLUTE AUTO 10.62 K/mm3 (1.96-9.15); NEUTROPHILS PERCENT AUTO 84 % (41-73); Platelet Count 262 K/mm3 (150-400); RDW Coefficient Variation 14.2 % (11.7-14.2); RDW Standard Deviation 45.1 fL (35.1-46.3); Red Blood Cell Count 4.62 M/mm3 (4.30-5.90); White Blood Cell Count 12.68 K/mm3 (4.00-11.30)
[2020-05-11 05:07] LABS: Anion Gap 6 mmol/L (6-16); Blood Urea Nitrogen 15 mg/dL (8-24); Bun/Creatinine Ratio 27.8 (12.0-20.0); CO2, Blood 25 mmol/L (21-32); Calcium, Blood 8.1 mg/dL (8.5-10.1); Chloride, Blood 104 mmol/L (98-108); Creatinine, Blood 0.54 mg/dL (0.60-1.20); Glomerular Filtration Rate >60 (60-); Glucose, Blood 132 mg/dL (70-99); Potassium, Blood 3.6 mmol/L (3.5-5.5); Sodium, Blood 135 mmol/L (136-145)
--- NOTE | 2020-05-11 05:29 | NUR ---
SHIFT SUMMARY: NABIL REPORTS ADEQUATE PAIN CONTROL WITH TORADOL AND THE STRAW BALER. HE STATES THAT THE OUTPUT THROUGH HIS OSTOMY IS SIGNIFICANTLY DECREASED AND THAT HE IS NOT PASSING FLATUS. THERE WAS A SMALL AMOUNT OF LIQUID STOOL OUTPUT THROUGH THE OSTOMY THIS SHIFT. HE IS TOLERATING SIPS AND CHIPS WELL. HE IS LYING IN BED WITH THE CALL LIGHT IN REACH. WILL REPORT TO JIM MOORE RN.
--- NOTE | 2020-05-11 17:27 | NUR ---
DR MARTIN HERE TO SEE PT.
--- NOTE | 2020-05-11 17:27 | NUR ---
DISCUSSED PT'S STATUS INCLUDING ABD DISTENTION, PERITONEAL DRAIN AND OUTPUT.
--- NOTE | 2020-05-11 17:43 | NUR ---
DR MARTIN REPORTS STOMA RETRACTING, REPORTS GOING TO TAKE PT BACK TO SURGERY, NEW OSTOMY BAG PLACED TO OSTOMY APPLIANCE PER DR HOWARD. WILL DISCUSS WITH WIRE RIGGER.
--- NOTE | 2020-05-11 17:53 | NUR ---
PT REPORTS TALKING TO AND FRIENDS REGARDING GOING BACK IN TO SURGERY PER DR MARTIN.
--- NOTE | 2020-05-11 18:13 | NUR ---
DR MARTIN HERE TO SEE PT, FAMILY PRESENT. DR MARTIN PLANNING TO TAKE PT BACK TO OR [facility]. ANESTHESIA HERE WELL.
--- NOTE | 2020-05-11 19:01 | NUR ---
PT OUT OF ROOM IN PT'S BED WITH OTHER STAFF TO HAVE PROCEDURE, RN UPDATED ON PT'S STATUS INCLUDING MEDICATIONS GIVEN TODAY. FAMILY PRESENT.
--- NOTE | 2020-05-11 19:03 | NUR ---
PT BEING PICKED UP BY SURGICAL STAFF.
--- NOTE | 2020-05-11 22:26 | NUR ---
PT ARRIVES TO ICU 1 FROM OR FOR RECOVERY. AROUSABLE TO VERBAL STIMULI AND STATES THAT HE FEELS LIKE HE IS IN THE WRONG HOSPITAL, HOWEVER DOES ASK IF HE IS STILL AT [facility] AND NODS UNDERSTANDING WHEN EXPLAINED THAT HE IS IN ICU FOR RECOVERY BUT WILL BE MOVED BACK OUT TO HIS REGULAR ROOM AFTER POST ANESTHESIA RECOVERY IS COMPLETE. LUNGS ARE CLEAR WITH DIM BASES BILAT, SATS ARE HIGH 90S WITH OXYGEN VIA NONREBREATHER MASK AT 11 L/MIN, EXHALE IS NOTED TO BE A MOANED "OW" WITH EACH BREATH, PT RATES PAIN 8/10 AND DESCRIBES BURNING TO LEFT LOWER QUADRANT. HRR, SINUS NOTED ON MONITOR, RATE 80-90S, PRESSURES MAINTAINING AT THIS TIME, SKIN IS PWD, PULSES ARE FULL X 4 EXTREMITIES, BRISK CAP REFILL, NO EDEMA IS NOTED. ABD DISTENDED, HYPOACTIVE BOWEL TONES, TENDER TO LIGHT PALP. WOUNDVAC RAMON DRESSING TO MIDLINE ABD MALECOT DRAIN IN PLACE AT INFERIOR ASPECT OF INCISION TO MIDLINE, NO DRAINAGE IS NOTED IN COLLECTION BAG AT THIS TIME, ABDIRAHMAN DRAIN TO PREV OSTOMY SITE AT LLQ, DRAINING SANGUINOUS FLUID AT THIS TIME, URESIL DRAIN TO RIGHT ABD REPORTED FROM PRIOR TO OR, SEROUS FLUID PRESENT IN COLLECTION CONTAINER. NEW OSTOMY SITE TO LEFT MID ABD, STOMA IS PINK AND MOIST, SMALL AMOUNT OF SANGUINOUS DRAINAGE IS PRESENT IN APPLIANCE. MURRAY CATH IN PLACE DRAINING CLEAR KRIS URINE. IV X 2 TO RIGHT FOREARM, SITES WNL.
--- NOTE | 2020-05-11 23:20 | NUR ---
RECIEVED REPORT FROM ICU NURSE, CATALINO HALL. STATES WILL BE TRANSFERRING BACK TO SURGICAL FLOOR SOON.
--- NOTE | 2020-05-11 23:25 | NUR ---
PT MEETS PACU DISCHARGE CRITERIA, AWAKE AND CONVERSATIONAL, SPEAKING IN FULL SENTENCES AND STATES THAT HE IS FEELING MUCH BETTER THAN PRIOR TO OR TODAY. PAIN IS CURRENTLY RATED AT 3/10 AFTER 2 SEPARATE DOSES OF FENTANYL 50 MCG IV. REPORT TO ANA THAKKAR
--- NOTE | 2020-05-12 06:38 | NUR ---
SHIFT SUMMARY: DAMASO RETURNED FROM SURGERY AT APPROX 2330. HE HAS TWO NEW DRAINS AND A NEW OSTOMY. HE HAS BEEN RESTING COMFORTABLY FOR THE MAJORITY OF THE TIME SINCE RETURNING. HE AROUSES EASILY AND RESPONDS APPROPRIATELY. IV X 2 TO R FA PATENT. HE IS ABLE TO MAKE HIS NEEDS KNOWN. PAS IN PLACE. DR. MARTIN GAVE ORDER TO RESTART OPTO MECHANICAL ENGINEER UNDER SAME PARAMETERS. VSS, NO ACUTE EVENTS OVERNIGHT. HE IS LYING IN BED WITH 3 RAILS UP AND THE CALL LIGHT IN REACH. WILL REPORT TO DAY SHIFT RN.
--- NOTE | 2020-05-12 07:32 | NUR ---
DR MARTIN HERE TO SEE PT. DISCUSSED PT'S STATUS.
--- NOTE | 2020-05-12 16:02 | NUR ---
SHIFT SUMMARY PT USING RRT FOR PAIN. PT BEEN ASSISTED WITH ADL'S PRN. PT MRURAY OUT THIS AM, PT VOIDING. PT HAS SMALL AMT OF PINK FLUID IN OSTOMY BAG, DR SWANSON, APPEARS WNL. PT HAS OTHER DRAINS ALSO IN PLACE. PT ATTEMPT TO SIDE OF BED WITH ASSIST TODAY BUT WAS "TOO PAINFUL" AT THIS TIME. PT REPOSITIONED IN BED WITH MULT ASSIST. PT MOVING SELF IN BED. FAMILY IN ROOM THIS AFTERNOON. PT ENC TO USE I/S WHICH HE SAYS HE HAS USED SOME TODAY.
--- NOTE | 2020-05-13 03:24 | NUR ---
PATIENT BECAME NAUSEATED AND STARTED VOMITING, HE STATED THAT HE FELT LIKE HIS STOMACH WAS COMPLETELY FULL. hOSPITALIST NOTIFIED AND ORDERED AND NG TUBE TO LIS. NG WITH NAHEED VALVE PLACED, IMMEDIATELY HAD 800CC OF GREEN FLUID OUT. PATIENT FEELS MUCH BETTER. NG SECURED AT THE SECOND TO THE LAST BLACK KANE. PATIENT TOLERATED PLACEMENT WELL.
--- NOTE | 2020-05-13 07:25 | NUR ---
RECVD REPORT FROM PREVIOUS SHIFT ALESIA RICK LYING IN BED ON THE TELEPHONE, A/O X 4, DENIES PAIN, BED IN LOWEST POSITION, CALL LIGHT WITHIN REACH
--- NOTE | 2020-05-13 08:30 | NUR ---
DR DAVIDSON ROUNDING ON PT
--- NOTE | 2020-05-13 13:15 | NUR ---
Spiritual care visit conducted. Patient is sitting on a chair and alert. Patient spouse, Litzy, is bedside. Patient tells me about the surgery that happened over the weekend and the struggle this morning with nausea and vimiting. Patient speaks about how the tube in his nose has relieved the pressure and pain in his stomach. Patient talks about how difficult it is to stay positive with so much going on. We discuss the beautiful memories he has and the good things yet to come and th sources of strength that are at his disposal. I provide companionship and prayer as well as encouraging self-care for both Litzy and patient. I will continue to remain available to patient and family.
--- NOTE | 2020-05-13 18:57 | NUR ---
SHIFT SUMMARY: VSS, NO ACUTE CHANGES. PT TOLERATED SLOW INTAKE OF POPSICLES PER MD THIS SHIFT WITH NO N/V. NG TUBE WITH DARK GREEN OUTPUT OF 700 ML OUT WITH APPROX 300 ML POPSICLES/CLEAR LIQUID. PT VOIDED >500 ML IN URINAL DARK YELLOW CLEAR LIQUID. PT STARTED ON PPN THIS SHIFT. MALLICOTT DRAIN WITH DARK YELLOW DRAINAGE, WAS NOT EMPTIED MINIMAL OUTPUT. COLOSTOMY EMPTIED OUT 30 ML BROWN/RED CLEAR LIQUID, COLOR OF POPSICLES. NO WET/DRY OLD OSTOMY SITE WITH NO DRAINAGE. LLQ ABDIRAHMAN WITH 20 ML OUT PT'S VISITED FOR >4 HRS THIS SHIFT. PT COMMUNICATED WITH FAMILY MEMBERS VIA VIDEO CHAT SEVERAL TIMES THIS SHIFT. PT REMAINED IN POSITIVE SPIRITS, PLEASANT/COOPERATIVE. PT UP IN CHAIR FOR APPROX 2 HRS THIS SHIFT. ASSISTED PT WITH SHAMPOO AND BIRD BATH IN CHAIR.
[2020-05-14 06:29] LABS: Magnesium, Blood 2.6 mg/dL (1.6-2.4); Phosphorus, Blood 3.3 mg/dL (2.5-4.9); Triglycerides 164 mg/dL (30-160)
--- NOTE | 2020-05-14 06:42 | NUR ---
SHIFT SUMMARY HAS RESTED WELL THIS SHIFT. NG TUBE TO RIGHT NARE IS PATENT, DRAINING GREEN FLUID TO LIWS. PLACEMENT VERIFIED WITH AIR BOLUS AND RESIDUAL CHECK. GOOD URINARY OUT PUT NOTED. NO OUT PUT INTO OSTOMY OR OTHER DRAINS ON RIGHT SIDE. GOOD PAIN CONTROL WITH FENT DIATHERMY EQUIPMENT REPAIRER LEFT UPPER ARM POWERGLIDE IS PATENT, FLUSHING WITH EASE WHILE INFUSING PPN WITH LIPIDS. DENIES PAIN, DISCOMFORT, OR FURTHER NEEDS AT THIS TIME. SAFETY MEASURES IN PLACE. WILL CONTINUE TO MONITOR ANF GIVE HAND OFF TO ONCOMING SHIFT USING [facility] B[facility]PORT.
--- NOTE | 2020-05-14 07:15 | NUR ---
RECVD REPORT FROM PREVIOUS SHIFT RN RADU, PT SLEEPING IN BED, BED IN LOWEST POSITION, BED RAILS UP X 2, CALL LIGHT WITHIN REACH
--- NOTE | 2020-05-14 08:30 | NUR ---
DR DAVIDSON ROUNDING ON PT
--- NOTE | 2020-05-14 09:30 | NUR ---
WHILE ROUNDING ON PT, PT APPEARED FORGETFUL, FORGOT WHO NURSING STAFF MEMBER WHO HAD LEFT THE ROOM LESS THAN 5 MIN BEFORE AND RETURNED WAS. REORIENTS WELL.
--- NOTE | 2020-05-14 15:48 | NUR ---
Spiritual care visit conducted. Patient is sitting up in bed and alert. Patient shares about how his digestive system needing to awaken and then goes into talking about the good things in his life that resided along side some of the deepest challenges. Patient talks about the family and friends that he is so thankful for in this season. I listen empathically and provide pastoral pediatric genetic counselor and prayer. Patient responds well and shows signs of being touched emotionally by the prayer. I will continue to remain available to patient and family.
--- NOTE | 2020-05-14 18:00 | NUR ---
shift summary: vss, no acute changes. ostomy appliance with no output. NG tube with 300 ml out today dark green liquid. PT worked with pt x 1, up in chair for approx 2 hrs. visited this shift, and pt spoke with family via video chat. Mallicott drain with 50 ml yellow fluid out. ABDIRAHMAN RLQ with 20 ml out serosanguinous liquid. Pt denies n/v. ARMORED CABLE MACHINE OPERATOR analgesia patent/draining.
--- NOTE | 2020-05-14 23:51 | NUR ---
SEROUS FLUID NOTED IN OSTOMY BAG, ABDIRAHMAN DRAIN, AND PIGTAIL DRAIN.
[2020-05-15 06:10] LABS: Alanine Aminotransfer (ALT/SGP 42 U/L (12-78); Albumin, Blood 1.8 g/dL (3.4-5.0); Albumin/Globulin Ratio 0.4 (0.8-1.8); Alk Phos 62 U/L (50-136); Anion Gap 3 mmol/L (6-16); Aspartate Aminotrans (AST/SGOT 34 U/L (12-37); Bilirubin, Total 0.5 mg/dL (0.1-1.0); Blood Urea Nitrogen 16 mg/dL (8-24); Bun/Creatinine Ratio 24.6 (12.0-20.0); CO2, Blood 31 mmol/L (21-32); Calcium, Blood 8.1 mg/dL (8.5-10.1); Chloride, Blood 106 mmol/L (98-108); Creatinine, Blood 0.65 mg/dL (0.60-1.20); Globulin, Blood 4.2 g/dL (2.2-4.0); Glomerular Filtration Rate >60 (60-); Glucose, Blood 128 mg/dL (70-99); Magnesium, Blood 2.4 mg/dL (1.6-2.4); Potassium, Blood 4.1 mmol/L (3.5-5.5); Sodium, Blood 140 mmol/L (136-145)
--- NOTE | 2020-05-15 06:27 | NUR ---
SHIFT SUMMARY HAS RESTED WELL THIS SHIFT. NG TUBE TO RIGHT NARE IS PATENT, DRAINING GREEN/BROWN FLUID TO LIWS. PLACEMENT VERIFIED WITH AIR BOLUS AND RESIDUAL CHECK. GOOD URINARY OUTPUT NOTED. SMALL AMOUNT OF SEROUS FLUID NOTED IN OSTOMY AND PIGTAIL DRAIN. STILL NO OUTPUT FROM THE MALICOT DRAIN. GOOD PAIN CONTROL WITH FENT UMBRELLA MENDER TO LEFT UPPER ARM POWERGLIDE THAT IS PATENT, FLUSHING WITH EASE WHILE INFUSING PPN WITH LIPIDS. DENIES PAIN, DISCOMFORT, OR FURTHER NEEDS AT THIS TIME. SAFETY MEASURES IN PLACE. WILL CONTINUE TO MONITOR ANF GIVE HAND OFF TO ONCOMING SHIFT USING [facility] BEDSIDE REPORT.
--- NOTE | 2020-05-15 11:57 | NUR ---
Spiritual care visit conducted. Met with patient's daughter and son, discussed patient care after DC, and provided prayer with patient and family.
--- NOTE | 2020-05-15 16:42 | NUR ---
SHIFT SUMMARY POD3 OSTOMY REVISION. PT CONT TO REPORT FEELING BETTER. CONT TO USE FENTANYL SKYDIVING INSTRUCTOR FOR PAIN MANAGEMENT. NO OUTPUT FROM MALECOT DRAIN, SMALL AMOUNT OF CLEAR YELLOW OUTPUT FROM URECIL DRAIN, SCANT SS DRAINAGE FROM ABDIRAHMAN DRAIN, NO OUTPUT OR GAS NOTED IN COLOSTOMY BAG. NGT TO LIS WITH 800CC DARK GREEN/BROWN DRAINAGE. RAMON DRESSING TO MIDLINE REMAINS CDI. PT UP TO CHAIR TODAY WITH PT/OT--1 SBA WITH FWW. USING URINAL TO VOID. PPN INFUSING PER ORDERS. FAMILY AT BEDSIDE FOR SUPPORT. SPIRITUAL CARE VISITED WITH PT AND FAMILY TODAY. PT USING CALL LIGHT APPROPRIATELY.
[2020-05-16 04:38] LABS: BASOPHILS ABSOLUTE AUTO 0.05 K/mm3 (0.00-0.23); BASOPHILS PERCENT AUTO 0 % (0-2); EOSINOPHILS ABSOLUTE AUTO 0.09 K/mm3 (0.00-0.68); EOSINOPHILS PERCENT AUTO 1 % (0-6); Hematocrit 40.8 % (37.0-53.0); IMMATURE GRAN ABSOLUTE AUTO 0.12 K/mm3 (0.00-0.10); IMMATURE GRAN PERCENT AUTO 1 % (0-1); LYMPHOCYTES ABSOLUTE AUTO 1.25 K/mm3 (0.84-5.20); LYMPHOCYTES PERCENT AUTO 8 % (21-46); MONOCYTES ABSOLUTE AUTO 1.27 K/mm3 (0.16-1.47); MONOCYTES PERCENT AUTO 8 % (4-13); Mean Corpuscular HGB 27.7 pg (26.0-34.0); Mean Corpuscular HGB Conc 31.9 g/dL (31.5-36.5); Mean Corpuscular Volume 87 fL (80-100); Mean Platelet Volume 9.4 fL (9.1-12.4); NEUTROPHILS ABSOLUTE AUTO 12.41 K/mm3 (1.96-9.15); NEUTROPHILS PERCENT AUTO 82 % (41-73); Platelet Count 447 K/mm3 (150-400); RDW Coefficient Variation 14.3 % (11.7-14.2); RDW Standard Deviation 45.7 fL (35.1-46.3); Red Blood Cell Count 4.69 M/mm3 (4.30-5.90); White Blood Cell Count 15.19 K/mm3 (4.00-11.30)
[2020-05-16 04:57] LABS: Magnesium, Blood 2.4 mg/dL (1.6-2.4); Phosphorus, Blood 3.8 mg/dL (2.5-4.9)
--- NOTE | 2020-05-16 05:19 | NUR ---
SHIFT SUMMARY POD 4 OSTOMY REVISION. 100MLS OF SOFT UNFORMED BROWN STOOL IN OSTOMY NOTED THIS SHIFT. OSTOMY APPLIANCE APPEARS CDI. HAS SCANT AMOUNT OF DARK BROWN/RED LIQUID IN MALECOT DRAIN. 10MLS OF YELLOW LIQUID IN URECIL DRAIN. 10MLS OF SEROUS FLUID IN ABDIRAHMAN, DRESSING CDI. RAMON TO MIDLINE HAS SMALL AMOUNT OF BROWN/RED DRAINAGE, DRESSING COMPRESSED AND INTACT. GAUZE DRESSING AND PACKING TO OLD STOMA SITE IN LLQ C/D/I. NG TO RIGHT NARE ON LIS; DRAINING 1450MLS OF LIGHT BROWN LIQUID. STILL HAVING EPISODES OF HICCUPS. PAIN MANAGED WITH FENTANYL STONE PRODUCT FABRICATOR. IS VOIDING AND USING URINAL APPRIOPRIATELY. GERMANIA ICE/POPSICLES, DENIES N/V. PPN AND ABX INFUSING PER ORDERS. IS A/OX4 WITH VSS AND ABLE TO EXPRESS NEEDS. PT IS CURRENTLY RESTING IN BED WITH CALL LIGHT IN REACH. REFUSES TO WEAR SCD'S. WILL CONT TO MONITOR AND GIVE REPORT TO ONCOMING RN.
--- NOTE | 2020-05-16 16:35 | NUR ---
SHIFT SUMMARY: PATIENT IS POD 4 OF COLOSTOMY. THERE IS UNFORMED BROWN STOOL IN OSTOMY NOTED DURING THE SHIFT. OSTOMY APPLIANCE APPEARS TO BE C/D/I. PATIENT HAS SCANT AMOUNT OF DARK BROWN/RED LIQUID IN MALECOT DRAIN. IN HIS URECIL DRAIN THERE IS YELLOW LIQUID COLLECTING IN BAG. THERE IS SMALL AMOUNT OF SEROUS FLUID IN THE ABDIRAHMAN DRAIN. RAMON ON THE MIDLINE OF ABD HAS SMALL AMOUNT OF BROWN DRAINAGE. NG COLLECTION HAD 750 ML DURING THE SHIFT. THE PATIENT IS STILL HAVING EPISODES OF HICCUPS. THORAZINE HAS BEEN ADMINISTERED IN AN IV PER DOCTOR STUART'S ORDER TO HELP DECREASE HICCUPS. PAIN IS MANAGED WITH FENTANYL SERVICE CENTER REPRESENTATIVE. HE HAS BEEN VOIDING AND USING THE URINAL APPROPRIATELY. HE HAS TOLERATED ICE/POPCICLES. DENIES N/V. PPN AND ABX ARE INFUSING ORDERED. HE HAS BEEN ALERT AND ORIENTED THROUGHOUT SHIFT WITH STABLE VITAL SIGNS. PATIENT IS CURRENTLY IN BED SLEEPING. WILL CONTINUE TO MONITOR AND GIVE REPORT TO ONCOMING NIGHTSHIFT RN.
--- NOTE | 2020-05-17 04:55 | NUR ---
SHIFT SUMMARY PT A/OX4. HAS BEEN SLEEPING MOST OF THE NIGHT. NG TUBE IN PLACE TO LOW INT. SUCTION. DRAINS AND OSTOMY ALL WNL. STUDENT RECORDS COORDINATOR IN PLACE. REPORTS PAIN IS MANAGED WELL. PT HAS BEEN NPO PER ORDERS. PT DID C/O HICCUPS; MED PER ORDERS - SEE EMAR. NO ACUTE CHANGES OVERNIGHT.
--- NOTE | 2020-05-17 07:50 | NUR ---
pt talking on the phone put a new canister 500 ml output pt hoping to get the ngt out if he gets more stool in ostomy
--- NOTE | 2020-05-17 11:29 | NUR ---
PT WORKING WITH PHYSICAL THERAPY DR DAVIDSON BY TO SEE PT
--- NOTE | 2020-05-17 14:00 | NUR ---
pt only ford clamp ngt for est 45 min then had nausea no emesis
--- NOTE | 2020-05-17 15:47 | NUR ---
pt reporting sob r/t hiccups o2 at [address] henderson by earlier packed the old stoma dressing pt ford well
--- NOTE | 2020-05-17 18:38 | NUR ---
pt visiting with family meds given as sched pt stated the o2 helped the hiccups
--- NOTE | 2020-05-18 07:15 | NUR ---
PT LAYING IN BED WATCHING TV STATED HE DID NOT SLEEP MUCH LAST NIGHT WILL NOTIFY PICC LINE RN THIS AM FOR PLACEMENT PT HAS SOME STOOL IN HIS OSTOMY NIGHT RN REPORTED LG AMT OF NGT
--- NOTE | 2020-05-18 07:47 | NUR ---
SUMMARY PT NG DRAINING LARGE VOLUME. SCANT PINK AFTER SIPPING RED POSICLE. DISCUSSED POSSIBLY SIPPING OTHER COLORS TO VERIFY COLOR OF NG OUTPUT,CARE FOR ALL DRESSINGS AND WOUND COMPLETED WELL.PT VOIDING DRK KRIS URINE. IV FLUIDS INFUSING WITH NEW START TO FACILITATE MY GIVING IV MEDS.PT IS PENDING A PICC LINE PLACEMENT TODAY.
--- NOTE | 2020-05-18 09:07 | NUR ---
pt visiting with family
--- NOTE | 2020-05-18 09:41 | NUR ---
dr henderson by to see new packing placed to old stoma site
--- NOTE | 2020-05-18 11:05 | NUR ---
PT AMB IN HALLWAY GERMANIA WELL WALKED ALL THE WAY DOWN THE GODINEZ PT BACK TO ROOM NGT HOOKED BACK UP SITTING IN RECLINER
--- NOTE | 2020-05-18 14:39 | NUR ---
ASSISTED BACK INTO BED
--- NOTE | 2020-05-18 16:49 | NUR ---
pt visiting with awaiting picc placement
--- NOTE | 2020-05-18 17:03 | NUR ---
ASSUMED CARE: REPORT RECIEVED FROM BIJAN JOHNSON. PICC NURSE AT BEDSIDE TO START NEW LINE. NG IN PLACE. NO FURTHER NEEDS OR CONCERNS AT THIS TIME.
--- NOTE | 2020-05-18 17:55 | NUR ---
SHIFT SUMMARY: BIJAN ALLEN AT BEDSIDE INSERTING PICC LINE AT THIS TIME. WILL PROVIDE ABX AND TPN WHEN LINE AVAIALBLE. NO ACUTE NEEDS OR CONCERNS AT THIS TIME.
[2020-05-19 05:44] LABS: BASOPHILS ABSOLUTE AUTO 0.04 K/mm3 (0.00-0.23); BASOPHILS PERCENT AUTO 0 % (0-2); EOSINOPHILS ABSOLUTE AUTO 0.07 K/mm3 (0.00-0.68); EOSINOPHILS PERCENT AUTO 1 % (0-6); Hematocrit 40.3 % (37.0-53.0); Hemoglobin 12.8 g/dL (13.5-17.5); IMMATURE GRAN ABSOLUTE AUTO 0.12 K/mm3 (0.00-0.10); IMMATURE GRAN PERCENT AUTO 1 % (0-1); LYMPHOCYTES ABSOLUTE AUTO 1.07 K/mm3 (0.84-5.20); LYMPHOCYTES PERCENT AUTO 7 % (21-46); MONOCYTES ABSOLUTE AUTO 1.62 K/mm3 (0.16-1.47); MONOCYTES PERCENT AUTO 11 % (4-13); Mean Corpuscular HGB 27.7 pg (26.0-34.0); Mean Corpuscular HGB Conc 31.8 g/dL (31.5-36.5); Mean Corpuscular Volume 87 fL (80-100); Mean Platelet Volume 9.9 fL (9.1-12.4); NEUTROPHILS PERCENT AUTO 81 % (41-73); Platelet Count 461 K/mm3 (150-400); RDW Coefficient Variation 14.1 % (11.7-14.2); RDW Standard Deviation 45.1 fL (35.1-46.3); Red Blood Cell Count 4.62 M/mm3 (4.30-5.90); White Blood Cell Count 15.32 K/mm3 (4.00-11.30)
[2020-05-19 06:12] LABS: Alanine Aminotransfer (ALT/SGP 40 U/L (12-78); Albumin, Blood 1.9 g/dL (3.4-5.0); Albumin/Globulin Ratio 0.4 (0.8-1.8); Alk Phos 82 U/L (50-136); Anion Gap 3 mmol/L (6-16); Aspartate Aminotrans (AST/SGOT 23 U/L (12-37); Bilirubin, Total 0.4 mg/dL (0.1-1.0); Blood Urea Nitrogen 21 mg/dL (8-24); Bun/Creatinine Ratio 32.4 (12.0-20.0); CO2, Blood 35 mmol/L (21-32); Calcium, Blood 8.3 mg/dL (8.5-10.1); Chloride, Blood 102 mmol/L (98-108); Creatinine, Blood 0.65 mg/dL (0.60-1.20); Globulin, Blood 4.7 g/dL (2.2-4.0); Glomerular Filtration Rate >60 (60-); Glucose, Blood 153 mg/dL (70-99); Magnesium, Blood 2.6 mg/dL (1.6-2.4); Phosphorus, Blood 3.3 mg/dL (2.5-4.9); Potassium, Blood 3.7 mmol/L (3.5-5.5); Sodium, Blood 140 mmol/L (136-145); Total Protein, Blood 6.6 g/dL (6.4-8.2)
--- NOTE | 2020-05-19 07:57 | NUR ---
SUMMARY PT STATES FELT BETTER TONIGHT.MOVING SIDE TO SIDE IN BED. VERB PAIN ADEQUATELY CONTROLLED
--- NOTE | 2020-05-19 18:31 | NUR ---
PT HAS BEEN STABLE THIS SHIFT. PT PAIN WELL CONTROLLED WITH EXPEDITER. PT WORKED WELL WITH NURSING STAFF TO AMBULATE AND SIT IN CHAIR. REMAINS NPO, BUT GERMANIA SIPS AND CHIPS. NGT WITH 850CC OUTPUT. NO NAUSEA. TPN INFUSING PER ORDERS. OSTOMY WITH SMALL AMT THICK BROWN OUTPUT. PT HAS CONTINUOUS HICCUPS. OTHER DRAINS WITH MINIMAL DRAINAGE CHARTED. RAMON REMOVED BY THIS AM AND GAUZE PLACED MIDLINE. PT USES CALL LIGHT APPROPRIATELY NEEDED.
--- NOTE | 2020-05-20 06:03 | NUR ---
SHIFT SUMMARY RECENT OSTOMY REVISION AA0X4, MODERATE OUTPUT FROM COLOSTOMY, BROWN AND STICKY. OSTOMY PINK AND BEEFY. NO DRAINAGE FROM ANY DRAINS DURING SHIFT, NO KINKS OR BENDS IN TUBING. NG TUBE YELLOWISH LIQUID OCCASIONALLY PINK/RED FROM POPSICLES. PT STATES COMFORTABLE WITH ICE CHIPS. PT TALKATIVE AND IN GOOD SPIRITS. TPN INFUSING T/O SHIFT.
--- NOTE | 2020-05-20 16:47 | NUR ---
Initial palliative care consult: Felice is a 69 year old with a history of HTN and a menigioma. 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 He has had two surgies in the past week and has a new revised colostomy. His only complaint at this time is the hiccups that come and go. The hiccups usually subside with the use of his [employer]ANT. He reports he has had thorazine in the past and did not like the way it made him feel. 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 They have lost two relatives in the past year. He reports this is a challenging time for him. His nani keeps him grounded and he is hopeful for a recovery. He has five children and several grandchildren. He has an appointment with Dr. Starr on 05/29/20 as a consult to start chemotherapy treatments. He already has a port. He is receiving TPN via a PICC line at this time. He has a clamped NG tube and is able to eat popsicles. Felice explained the plan for 6 rounds of chemo over a 12 week period and then he will be rescanned. He states if he is showing progress he will continue with treatments. If his cancer advances, he states "I've already made my arrangements just in case." He has a strong family and sabianism friends support system. He reports that he is very blessed. Discussed cancer treatments and when to notify Dr. Starr if he is experiencing problematic side effects from the treatments. He verbalized understanding. He confirms his full code status at this time. PC will remain available for symptom management and advanced care planning as needed.
--- NOTE | 2020-05-20 18:35 | NUR ---
SHIFT SUMMARY PT A&OX4, VSS, MIDLINE MEDIPORE AND DRESSING CHANGED THIS SHIFT, OSTOMY W/LITTLE OUTPUT, ABDIRAHMAN (LABD) WITH 5 MLS OUT, DRAIN (RABD) SMALL AMT DRAINAGE, NG CLAMPED SINCE 929, DENIES N&V, GERMANIA POPSICLES (ORANGE AND BANANA) AND ICE WATER. PAIN MANAGED WITH FENT MOLD BUILDER. TPN @ 75 MLS/HR. OOB, AMB TO BRP, UP TO CHAIR, REPOSITIONS SELF, VOIDING WELL. WILL REPORT TO ONCOMING NOC RN.
--- NOTE | 2020-05-21 03:59 | NUR ---
SHIFT SUMMARY PT A/O X4. REPOSITIONS SELF IN BED. REPORTS PAIN MANAGED WELL WITH CONCIERGE MANAGER PUMP. HAS HAD HICCUPS OCC T/O SHIFT. NG TUBE HAS BEEN CLAMPED; PT DENIES N/V AND ABD DISCOMFORT T/O SHIFT. TPN INFUSING IN PICC. SM AMT LIQUID STOOL IN OSTOMY. NO ACUTE CHANGES OVERNIGHT.
[2020-05-21 06:03] LABS: Triglycerides 155 mg/dL (30-160)
--- NOTE | 2020-05-21 14:05 | NUR ---
Spiritual care visit conducted. Patient tells me that he is having a "down-day" and so he my visit is welcomed. We talk about his personal feelings and his struggles. We also talk about his recent prayers and how communication with God is expressed. Patient seems comforted as I normalize the the way he prays and the topics of those prayers. Patient is also encouraged as he runs through a very long list of things he is most grateful for. I encourage patient to continue on his spiritual journey and provide prayer for him and his family. Patient displays evidence of an elevated mood. As I remain available to patient and family I will assist in the deeper conversations in his spiritual life and with family.
--- NOTE | 2020-05-21 17:22 | NUR ---
SHIFT SUMMARY PT A&OX4, VSS, SHOWER TODAY. NG AND ABDIRAHMAN OUT THIS AM. ABD DRESSINGS CHANGED. OSTOMY CHANGED, GOOD OUTPUT. 1 DRAIN R SIDE, TO MURRAY BAG; DRESSING CHANGED. PICC LINE WITH LINE WELDER AND TPN. PAIN MANAGED WITH FENT LINE WELDER. TPN @ 75 MLS/HR; GERMANIA CL DIET. DENIES N&V AND DENIES HICCUPS. AMBULATED W/FWW & GB IN ROOM, HALLWAYS; UP TO CHAIR T/O SHIFT; REPOSITIONS SELF. SHOWER TODAY. WILL REPORT TO ONCOMING NOC RN.
--- NOTE | 2020-05-22 03:22 | NUR ---
VITALS I WAS TAKING PATIENT'S VITALS AT 0311, FORGOT TO PLACE OXYGEN PROBE, PULLED IN LAST OXYGEN AND PULSE. CORRECTED PULSE AND SPO2 AT 0312.
--- NOTE | 2020-05-22 06:20 | NUR ---
SHIFT SUMMARY: NO SIGNIFICANT CHANGES THIS SHIFT. MALECOT DRAIN TO RLQ INTACT WITH SCANT AMOUNT OF DRG IN BAG. OSTOMY APPLIANCE TO LLQ C/D/I. PREVIOUS STOMA SITE PACKED WITH GAUZE SOAKED IN SALINE. SMALL AMOUNT OF SEROUS FLUID NOTED TO GAUZE. STOMA MOIST, RED AND BEEFY. PRODUCING SCANT AMOUNT OF ORANGISH-BROWN LIQ STOOL. HYPOACTIVE BT THROUGHOUT. PT TOLERATING SMALL AMOUNT OF CLEAR LIQUIDS. DENIES N/V. PAIN BEING MANAGED WITH FENTANYL FEATHEREDGE MACHINE OPERATOR. ADEQUATE URINE OUTPUT. TPN INFUSING PER ORDERS. PT RESTING MOST OF SHIFT.
--- NOTE | 2020-05-22 09:20 | NUR ---
Meet with Felice this morning in his room. He is eating his clear liquid breakfast. His NG was removed yesterday, no c/o nausea. Ostomy draining stool per pt report. He states he is attempting to increase his ambulating and deep breathing each day. No questions at this time. PC will continue to monitor.
--- NOTE | 2020-05-22 11:44 | NUR ---
Patient talks about his medical issues and how they are affecting him emotionally/spiritually. 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 I listen empathically, facilitate life review, provide anticipatory guidance (for upcoming chemotherapy and possible shortened life span), pastoral certified alcohol and drug counselor and prayer. Patient responds well and is clearly moved by the prayer and shows signs of improved hope. I will continue to remain available to patient and family.
--- NOTE | 2020-05-22 17:28 | NUR ---
SHIFT SUMMARY PAIN HAS BEEN MANAGED WITH A WAIST CUTTER TODAY. PT IS A 1 ASSIST WHEN OOB. ADVANCED TO FULL LIQUID DIET. PASSING BROWN UNFORMED STOOL FROM OSTOMY. VSS. WILL MONITOR UNTIL REPORT TO ONCOMING RN.
--- NOTE | 2020-05-23 06:16 | NUR ---
SHIFT SUMMARY LYING IN LOW FOWLERS WITH EYES CLOSED. AAO X3, MITCHELL, FOLLOWSALL COMMANDS. RESPIRATIONS EVEN AND UNLABORED ON RA. LUNG SOUNDS CLEAR AND DIMINSHED IN BASES BILATERALLY. ABDOMEN SOFT AND NONDISTENDED. BOWEL SOUNDS PRESENT IN ALL QUADS. LEFT UPPER ARM PICC IS PATENT, EACH LUMEN FLUSHING WITH EASE AND GOOD BLOOD RETURN NOTED. TPN INFUSING VIA RED LUMEN. COLOSTOMY TO LLQ IS PATENT, DRAINING BROWN LIQUID UNFORMED STOOL TO BAG. RLQ OLD STOMA SITE DRESSING IS C/D/I, WILL MONITOR AND CHANGE PRN. MIDLINE DRESSING IS C/D/I. REPOSITIONES SELF FOR COMFORT. DENIES PAIN, DISCOMFORT, OR FURTHER NEEDS AT THIS TIME. SAFETY MEASURES IN PLACE. WILL CONTINUE TO MONITOR AND GIVE HAND OFF TO ONCOMING SHIFT USING SBAR DURING BEDSIDE REPORT.
--- NOTE | 2020-05-23 10:53 | NUR ---
POST SHOWER DRESSING CHANGES OLD STOMA SITE LOWER LEFT ABD- PACKED WITH KURLEX AND COVERED WITH MEDIPORE TAPE, WET TO DRY DRESSING. RINSED OVER WOUND BED WITH 10ML NS FLUSH SKIN AROUND WOUND IS TENDER, ERYTHEMATOUS (RED/ DARKISH DISCOLORED) BUT NO SIGN OF INFECTION. MIDLINE INCISION- SEVERAL BECKY REMOVED BY DR. DAVIDSON THIS MORNING, OPEN TO AIR DURING SHOWER AND RINSED WITH WATER, MEDIPORE DRESSING SECURED WITH MEDIPORE TAPE COVERED THE INCISION AFTER THE SHOWER. PT DOES NOT REPORT PAIN OR TENDERNESS IN THE AREA. MALECOT DRAIN DRESSING ON RIGHT LOWER ABD/SIDE 2 4X4 DRAIN SPONGES WERE USED AT THE INSERTION SITE IN ALTERNATING DIRECTIONS AND SECURED WITH MEDIPORE TAPE. OSTOMY APPLIANCE AND DRESSING STILL INTACT PT TOLERATED SHOWER AND DRESSING CHANGES WELL, 1 PERSON SBA WITH WALKER TO THE BATHROOM AND IN THE SHOWER HE HAD MINIMAL ASSISTANCE AND USED SHOWER CHAIR
--- NOTE | 2020-05-23 12:51 | NUR ---
SHIFT ASSESSMENT SHIFT ASSESSMENT DOCUMENTED BY KATLIN STUDENT NURSE, HAS BEEN REVIEWED BY THIS RN. THIS RN AGREES WITH DOCUMENTATION AND ASSESSMENT BY KATLIN.
--- NOTE | 2020-05-23 13:13 | NUR ---
Spiritual care visit conducted. Upon patient request for spiritual care, I visit patient. Patienttells me he is depressed today. We go over a large list of reasons for his depression. We work through many of those items, with tears at times. Patient depth of love for his family and friends is seen in the priorities he has and the concerns that are top of the mind for him. I reinforce those helpful attitudes and practices. I allow space for patient to be heard and I provide pastoral treatment counselor. I proved prayer which, even in past visits, is a tender, comforting and encouraging place for him (As stated by the patient). Patient shows signs of and elevated mood and of being encouraged. I will continue to discuss the topics that have proven to weigh the patient down, as needed.
--- NOTE | 2020-05-23 14:34 | NUR ---
PT REPORTS FEELING TIRED TODAY. HE HAS ALSO EXPRESSED FEELING FEARFUL AND WORRIED. HE REPORTED TO THIS RN THAT HE IS NOT HUNGRY AND DOES NOT FEEL LIKE EATING. HE REPORTED THIS CAUSES ANXIETY FOR HIM BECAUSE HIS [id number] DID NOT FEEL LIKE EATING BEFORE HE . PT REPORTS FEELING EXHAUSTED AND EMOTIONALLY DRAINED TODAY. THIS RN SAT AT THE BEDSIDE AND PROVIDED THERAPEUTIC LISTENING AND EDUCATION WHEN NEEDED. WILL CONTINUE TO MONITOR AND PROVIDE EMOTIONAL SUPPORT.
--- NOTE | 2020-05-23 17:46 | NUR ---
PT WAS ASSESSED BY DR DAVIDSON THIS MORNING, HE REMOVED EVERY OTHER STAPLE IN THE MIDLINE INCISION. PT WAS UP 1 PERSON ASSIST WITH WALKER TO THE SHOWER CHAIR. FOLLOWING THE SHOWER THE MALECOT DRAIN DRESSING, OLD SURGICAL STOMA SITE DRESSING AND THE MIDLINE INCISION WERE ALL REDRESSED. THE MALECOT DRAIN WAS COVERED WITH TWO DRAIN SPONGES GOING IN OPPOSITE DIRECTIONS AROUND THE TUBING AND SECURED WITH MEDIPORE TAPE. THE OLD SURGICAL STOMA SITE ON THE LOWER LEFT ABDOMEN WAS PACKED WET TO DRY, KURLEX WET WITH NS AND COVERED WITH MEDIPORE TAPE, THE SITE HAD SCANT AMOUNT OF SEROSANGUINEOUS DRAINAGE ON THE OLD DRESSING. A MEDIPORE DRESSING WAS APPLIED TO THE MIDLINE INCISION. THE FLORAL MERCHANDISER PUMP WAS DC'D THIS MORNING AND REPLACED WITH FENTENYL IV PRN FOR BREAKTHROUGH PAIN AND NORCO Q4H PRN FOR PAIN. PT HAS HAD INCREASED PAIN SINCE STOPPING THE FLORAL MERCHANDISER BUT IT HAS BEEN TOLERABLE AND HAS BEEN RELIEVED WITH MEDICATION AND REPOSITIONING. PT HAS REPORTED SOME SADNESS REGARDING HIS HEALTH STATUS, AND THAT HE IS ACCEPTING THAT HIS HEALTH IS DECLINING. PT EXPRESSED INTEREST IN A VISIT WITH THE [facility] AND POSSIBLY COUNSELING FOLLOWING DISCHARGE. DR. DAVIDSON WANTS TO WORK TOWARD DISCONTINUING THE CPN, DIETARY PUT PT ON CALORIE COUNT TO CONFIRM HIS NUTRITIONAL PO INTAKE BEFORE STOPPING CPN. PICC LINE DRESSING IS C/D/I. PT DID NOT WORK WITH PHYSICAL THERAPY TODAY HE IS FEELING EMOTIONALLY AND PHYSICALLY EXHAUSTED FROM SPENDING TIME IN THE CHAIR TODAY AND COMPLETING THE SHOWER WITH MINIMAL ASSISTANCE WELL FEELING DOWN.
--- NOTE | 2020-05-24 04:56 | NUR ---
SHIFT SUMMARY LYING IN LOW FOWLERS WITH EYES CLOSED. AAO X3, MITCHELL, FOLLOWS ALL COMMANDS. RESPIRATIONS EVEN AND UNLABORED ON RA. LUNG SOUNDS CLEAR AND DIMINSHED IN BASES BILATERALLY. ABDOMEN SOFT AND NONDISTENDED. BOWEL SOUNDS PRESENT IN ALL QUADS. LEFT UPPER ARM PICC IS PATENT, EACH LUMEN FLUSHING WITH EASE AND GOOD BLOOD RETURN NOTED, TPN INFUSING VIA RED LUMEN. COLOSTOMY TO LLQ IS PATENT, DRAINING BROWN LIQUID STOOL TO BAG. LLQ OLD STOMA SITE DRESSING IS C/D/I, CHANGED WITH OSTOMY THIS SHIFT. MIDLINE DRESSING IS C/D/I. PARTIAL BATH COMPLTED WITH GOWN AND LINEN CHANGE. REPOSITIONES SELF FOR COMFORT. DENIES PAIN, DISCOMFORT, OR FURTHER NEEDS AT THIS TIME. SAFETY MEASURES IN PLACE. WILL CONTINUE TO MONITOR AND GIVE HAND OFF TO ONCOMING SHIFT USING SBAR DURING BEDSIDE REPORT.
--- NOTE | 2020-05-24 09:46 | NUR ---
DR DAVIDSON BY TO SEE PT CHANGED DRESSING REMOVED A FEW BECKY TO MIDLINE AND PUT A PLUG TO MALACHOT DRAIN WILL PLACED TO DRAINAGE BAG DURING PM SHIFT AND CAP DURING THE DAY
--- NOTE | 2020-05-24 11:46 | NUR ---
Spiritual care visit conducted. Patient immediately talks about the desires that he has for certain family members and what he would like to communicate before he dies. We discuss ways those wishes could be carried out. Patient also tells stories about the many blessings and near experiences he has survived. We talk about how God has brought him through then and how he will sustain him now. I provide therapeutic listening, companionship and prayer. Patient states that he feels much better because of the visit. I will continue to remain available to patient and family.
--- NOTE | 2020-05-24 13:16 | NUR ---
pt talking with dietary
--- NOTE | 2020-05-24 16:09 | NUR ---
pt amb earlier in hallway with physical therapy pt currently up in chair denis collins given with ensure
--- NOTE | 2020-05-24 18:02 | NUR ---
pt eating dinner
--- NOTE | 2020-05-25 05:31 | NUR ---
SHIFT SUMMARY NO ACUTE CHANGES THIS SHIFT. PT A/OX4 WITH VSS. OSTOMY APPLIANCE TO LLQ C/D/I, SMALL AMOUNT SOFT BROWN STOOL TO BAG. MALECOT DRAIN UNCLAMPED AT START OF SHIFT, NO DRAINAGE NOTED. DRESSINGS TO ABD C/D/I, NO DRAINAGE. MIDLINE INCISION OPEN TO AIR WITH SOME BECKY INTACT. PICC LINE IN EMPERATRIZ PATENT, TPN INFUSING PER ORDERS. IS VOIDING AND USING URINAL APPROPRIATELY. PT APPEARS TO HAVE SLEPT WELL T/O MOST OF NIGHT. DENIES NEED FOR PAIN MEDICATION. ABLE TO REPOSITION SELF IN BED. GERMANIA PO FLUIDS. PT APPEARS TO BE CURRENTLY SLEEPING IN BED, HAS CALL LIGHT IN REACH . WILL CONT TO MONITOR AND GIVE REPORT TO ONCOMING RN.
--- NOTE | 2020-05-25 18:09 | NUR ---
SHIFT SUMMARY; NO ACUTE CHANGES DURING SHIFT. A/A/OX4. MALECOT DRAIN CLAMPED AT BEGGINING OF SHIFT FOR DAY. OSTOMY DRAINING SOFT BROWN STOOL. USING URINAL, WORKED WITH PT TODAY AND UP IN RECLINER FOR 2 HOURS. TPN INFUSING, WILL CONTINUE TO MONITOR UNTIL CHANGE OF SHIFT.
--- NOTE | 2020-05-26 04:26 | NUR ---
Shift summary. Patient was able to sleep most of the night without complaints. His malicot drain was reattached to the drain bag at the beginning of the shift and has has a small amount in the tubing drain in the past 10+ hours (Approximately 5-10cc). ostomy is putting out liquid and occasionally formed stool, brown. No drainage from the midline incision. No acute changes, call light in reach.
[2020-05-26 04:28] LABS: BASOPHILS ABSOLUTE AUTO 0.04 K/mm3 (0.00-0.23); BASOPHILS PERCENT AUTO 0 % (0-2); EOSINOPHILS ABSOLUTE AUTO 0.12 K/mm3 (0.00-0.68); EOSINOPHILS PERCENT AUTO 1 % (0-6); Hematocrit 36.5 % (37.0-53.0); Hemoglobin 11.9 g/dL (13.5-17.5); IMMATURE GRAN ABSOLUTE AUTO 0.08 K/mm3 (0.00-0.10); IMMATURE GRAN PERCENT AUTO 1 % (0-1); LYMPHOCYTES ABSOLUTE AUTO 1.28 K/mm3 (0.84-5.20); LYMPHOCYTES PERCENT AUTO 11 % (21-46); MONOCYTES ABSOLUTE AUTO 1.07 K/mm3 (0.16-1.47); MONOCYTES PERCENT AUTO 9 % (4-13); Mean Corpuscular HGB 28.3 pg (26.0-34.0); Mean Corpuscular HGB Conc 32.6 g/dL (31.5-36.5); Mean Corpuscular Volume 87 fL (80-100); Mean Platelet Volume 10.4 fL (9.1-12.4); NEUTROPHILS ABSOLUTE AUTO 8.74 K/mm3 (1.96-9.15); NEUTROPHILS PERCENT AUTO 77 % (41-73); Platelet Count 307 K/mm3 (150-400); RDW Coefficient Variation 14.4 % (11.7-14.2); RDW Standard Deviation 45.1 fL (35.1-46.3); Red Blood Cell Count 4.21 M/mm3 (4.30-5.90); White Blood Cell Count 11.33 K/mm3 (4.00-11.30)
[2020-05-26 04:52] LABS: Anion Gap 4 mmol/L (6-16); Blood Urea Nitrogen 17 mg/dL (8-24); Bun/Creatinine Ratio 25.6 (12.0-20.0); CO2, Blood 30 mmol/L (21-32); Calcium, Blood 8.5 mg/dL (8.5-10.1); Chloride, Blood 104 mmol/L (98-108); Creatinine, Blood 0.67 mg/dL (0.60-1.20); Glomerular Filtration Rate >60 (60-); Glucose, Blood 126 mg/dL (70-99); Magnesium, Blood 2.3 mg/dL (1.6-2.4); Phosphorus, Blood 3.6 mg/dL (2.5-4.9); Potassium, Blood 3.9 mmol/L (3.5-5.5); Sodium, Blood 138 mmol/L (136-145)
--- NOTE | 2020-05-26 16:19 | NUR ---
SUMMARY NO ACUTE CHANGES NOTED THROUGH THE DAY. PT IS TOLERATING PO INTAKE, DENIES PAIN, VOIDING WNL, STOOL IS SOFT BROWN IN OSTOMY BAG, STOMA REMAINS BEEFY RED. PT ENC & EDUCATED ON HOW TO EMPTY HIS OWN OSTOMY BEG. PT HAS AMBULATED IN THE HALLS WITH HIS . WCTM, CALL LIGHT IN REACH,
--- NOTE | 2020-05-27 05:07 | NUR ---
SHIFT SUMMARY PT A/O X4, USING CALL LIGHT APPR. PT IS SBA-1X ASSIST WHEN UP. PT HAS DENIED PAIN T/O SHIFT. OSTOMY PUTTING OUT SOFT/LIQUID STOOL. DRESSING TO OLD OSTOMY SITE CHANGED THIS SHIFT. PT TOLERATING PO INTAKE WITHOUT NAUSEA. NO ACUTE CHANGES OVERNIGHT.
--- NOTE | 2020-05-27 14:20 | NUR ---
Spiritual care visit conducted. Patient tells me about the events of the weekend and about how he is anxious today. The anxiousness patient feels is centered around the fear of the unknown. Patient I provide anxiety containment and prayer. Patient responds well and shows signs of reduced stress. I will continue to help patient process his emotions going forward.
--- NOTE | 2020-05-27 17:35 | NUR ---
SHIFT SUMMARY PT DID OWN OSTOMY CARE. IND IN ROOM. WEANED OFF TPN. INCREASING DIET SLOWLY BUT DOES REPORT MIN APPETITE. PLEASANT AND COOPERATIVE.
--- NOTE | 2020-05-28 06:45 | NUR ---
SUMMARY PT SLEPT QUIETLY. ANXIOUS FOR POSSIBLE DISCHARGE TODAY.NO ACUTE CONCERNS.
--- NOTE | 2020-05-28 07:00 | NUR ---
recvd report from previous shift mac moulton pt lying in bed, opens eyes at entrance, a/0 x 4, pleasant/cooperative, denies any n/v, denies pain. bed in lowest position, bed rails up x 2, call light within reach
--- NOTE | 2020-05-28 08:45 | NUR ---
dr henderson rounding on pt, expected DC orders for today
--- NOTE | 2020-05-28 13:06 | NUR ---
Spiritual care visit conducted. Patient tells me he is going home today. We talk about the issues he is most concerned about upon DC. Patient is tearful today and so we discuss what those tears may mean. We look at patient's thoughts on his family, his fears and his nani. I leave my information with patient so he can contact me if he needs extra support, we also discuss the activities he would like to engage in that will help keep his spirits up and his soul full. I provide companionship and prayer. Patient expresses gratitude for my time and care.
[2020-05-28] MEDS ORDERED: ACET325 PO (15:15)
--- NOTE | 2020-05-28 17:30 | NUR ---
provided pt and with ostomy education for approx 30 min, demonstrated/taught back ostomy appliance change, provided pt and with ostomy supplies, dressing change supplies, discharge instructions which they state understanding of, printed material. PICC line removed by relief charge nurse MARI. pt had showered himself prior to discharge instruction. pt escorted to awaiting vehicle via wheelchair with a cart transporting pt's belongings to vehicle.
== END 2020-05-28 18:44 | disposition home or self-care (01) | DRG 330 ==
LOC: ER 05:33 → SURS 05:34
PROVIDERS: Emergency Medicine; Surgery; ADMIT Surgery
PROC: 0D1M0Z4 Bypass Descending Colon to Cutaneous, Open Approach (ICD-10-PCS; principal; 2020-05-10)
PROC: 0W9F30Z Drainage of Abdominal Wall with Drainage Device, Percutaneous Approach (ICD-10-PCS; 2020-05-10)
PROC: 0WQFXZ2 Repair Abdominal Wall, Stoma, External Approach (ICD-10-PCS; 2020-05-12)
DX: C76.2 Malignant neoplasm of abdomen (principal); R18.0 Malignant ascites; K94.09 Other complications of colostomy; C18.7 Malignant neoplasm of sigmoid colon; I10 Essential (primary) hypertension; Z20.828 Contact with and (suspected) exposure to other viral communicable diseases
CPT/HCPCS: 36415; 36569; 49405; 74177; 80048; 80053; 83735; 84100; 84478; 85025; 85610; 87070; 87075; 87205; 96360; 97110; 97112; 97116; 97162; 97530; 99285-25; A9270; A9270-GY; C1751; C9113; J0295; J0694; J1100; J1650; J1885; J2250; J2370; J2405; J2704; J3010; J3230; J7030; J7050; J7120; Q9967; U0002

== ENCOUNTER 2020-09-03 11:42 | Day surgery (SDC) | payer MEDICARE, OTHER ==
[~2020-09-03 11:42] MED LIST changes: +ACET325 PO
== END 2020-09-03 23:36 | disposition home or self-care (01) ==
LOC: RAD 11:42
DX: I97.89 Other postprocedural complications and disorders of the circulatory system, not elsewhere classified (principal); C18.1 Malignant neoplasm of appendix
CPT/HCPCS: 36598; Q9967

== ENCOUNTER 2020-09-12 11:28 | Emergency (ER) | payer MEDICARE, OTHER ==
[~2020-09-12] VITALS: Ht 177.8 cm; Wt 98.4 kg
[2020-09-12] MEDS ORDERED: XARELTO15 MG PO (11:47)
[2020-09-12 13:14] LABS: Alanine Aminotransfer (ALT/SGP 22 U/L (12-78); Albumin, Blood 3.4 g/dL (3.4-5.0); Albumin/Globulin Ratio 0.9 (0.8-1.8); Alk Phos 81 U/L (50-136); Anion Gap 4 mmol/L (6-16); Aspartate Aminotrans (AST/SGOT 21 U/L (12-37); Bilirubin, Total 0.3 mg/dL (0.1-1.0); Blood Urea Nitrogen 14 mg/dL (8-24); Bun/Creatinine Ratio 19.2 (12.0-20.0); CO2, Blood 28 mmol/L (21-32); Calcium, Blood 8.9 mg/dL (8.5-10.1); Chloride, Blood 108 mmol/L (98-108); Creatinine, Blood 0.73 mg/dL (0.60-1.20); Globulin, Blood 3.8 g/dL (2.2-4.0); Glomerular Filtration Rate >60 (60-); Glucose, Blood 145 mg/dL (70-99); Potassium, Blood 3.9 mmol/L (3.5-5.5); Sodium, Blood 140 mmol/L (136-145); Total Protein, Blood 7.2 g/dL (6.4-8.2)
[2020-09-12 13:15] LABS: BASOPHILS ABSOLUTE AUTO 0.03 K/mm3 (0.00-0.23); BASOPHILS PERCENT AUTO 1 % (0-2); EOSINOPHILS ABSOLUTE AUTO 0.02 K/mm3 (0.00-0.68); EOSINOPHILS PERCENT AUTO 1 % (0-6); Hemoglobin 13.1 g/dL (13.5-17.5); IMMATURE GRAN ABSOLUTE AUTO 0.02 K/mm3 (0.00-0.10); IMMATURE GRAN PERCENT AUTO 1 % (0-1); LYMPHOCYTES ABSOLUTE AUTO 0.91 K/mm3 (0.84-5.20); LYMPHOCYTES PERCENT AUTO 23 % (21-46); MONOCYTES ABSOLUTE AUTO 0.34 K/mm3 (0.16-1.47); MONOCYTES PERCENT AUTO 9 % (4-13); Mean Corpuscular HGB 30.8 pg (26.0-34.0); Mean Corpuscular HGB Conc 32.8 g/dL (31.5-36.5); Mean Corpuscular Volume 94 fL (80-100); NEUTROPHILS ABSOLUTE AUTO 2.62 K/mm3 (1.96-9.15); NEUTROPHILS PERCENT AUTO 67 % (41-73); Platelet Count 241 K/mm3 (150-400); RDW Coefficient Variation 16.6 % (11.7-14.2); RDW Standard Deviation 57.8 fL (35.1-46.3); Red Blood Cell Count 4.25 M/mm3 (4.30-5.90); White Blood Cell Count 3.94 K/mm3 (4.00-11.30)
== END 2020-09-12 15:30 | disposition home or self-care (01) ==
LOC: ER 11:28
PROVIDERS: Emergency Medicine
DX: I82.C11 Acute embolism and thrombosis of right internal jugular vein (principal); Z79.01 Long term (current) use of anticoagulants
CPT/HCPCS: 36415; 70360; 80053; 85025; 99284-25

== ENCOUNTER 2020-10-03 06:10 | Day surgery (SDC) | payer MEDICARE, OTHER ==
[~2020-10-03] VITALS: Ht 177.8 cm; Wt 99.3 kg
[~2020-10-03 06:10] MED LIST changes: +XARELTO15 MG PO
--- NOTE | 2020-10-03 09:19 | NUR ---
RECIEVED REPORT AND PATIENT VSS.
--- NOTE | 2020-10-03 09:59 | NUR ---
Discharge instructions reviewed with patient. Patient verbalizes understanding. Copy given to patient to take home. Patient States Post-Procedure ride home has been arranged. Discharged via wheelchair to private car for ride home.
== END 2020-10-03 10:11 | disposition home or self-care (01) ==
LOC: ORSCMMR 06:10 → ORD 07:30 → ORSCMMR 07:30
PROVIDERS: Surgery
PROC: B5141ZA Fluoroscopy of Left Jugular Veins using Low Osmolar Contrast, Guidance (ICD-10-PCS; principal; 2020-10-03 07:30)
PROC: 05HN33Z Insertion of Infusion Device into Left Internal Jugular Vein, Percutaneous Approach (ICD-10-PCS; principal; 2020-10-03 07:30)
PROC: 0JPT0WZ Removal of Totally Implantable Vascular Access Device from Trunk Subcutaneous Tissue and Fascia, Open Approach (ICD-10-PCS; principal; 2020-10-03 07:30)
DX: C18.8 Malignant neoplasm of overlapping sites of colon (principal); I82.90 Acute embolism and thrombosis of unspecified vein; T82.524A Displacement of infusion catheter, initial encounter; I10 Essential (primary) hypertension; Z79.899 Other long term (current) drug therapy
CPT/HCPCS: 77001; C1788; J0690; J1100; J1642; J2405; J2704; J3010; J7120

== ENCOUNTER 2021-06-09 11:02 | Emergency (ER) | payer MEDICARE, OTHER ==
[~2021-06-09] VITALS: Ht 177.8 cm; Wt 100.2 kg
[2021-06-09 13:10] LABS: BASOPHILS ABSOLUTE AUTO 0.04 K/mm3 (0.00-0.23); BASOPHILS PERCENT AUTO 0 % (0-2); EOSINOPHILS ABSOLUTE AUTO 0.08 K/mm3 (0.00-0.68); EOSINOPHILS PERCENT AUTO 1 % (0-6); Hematocrit 41.6 % (37.0-53.0); Hemoglobin 14.5 g/dL (13.5-17.5); IMMATURE GRAN ABSOLUTE AUTO 0.02 K/mm3 (0.00-0.10); IMMATURE GRAN PERCENT AUTO 0 % (0-1); LYMPHOCYTES ABSOLUTE AUTO 1.03 K/mm3 (0.84-5.20); LYMPHOCYTES PERCENT AUTO 11 % (21-46); MONOCYTES PERCENT AUTO 12 % (4-13); Mean Corpuscular HGB 33.1 pg (26.0-34.0); Mean Corpuscular HGB Conc 34.9 g/dL (31.5-36.5); Mean Corpuscular Volume 95 fL (80-100); NEUTROPHILS ABSOLUTE AUTO 7.35 K/mm3 (1.96-9.15); NEUTROPHILS PERCENT AUTO 76 % (41-73); Platelet Count 178 K/mm3 (150-400); RDW Coefficient Variation 15.6 % (11.7-14.2); RDW Standard Deviation 53.9 fL (35.1-46.3); Red Blood Cell Count 4.38 M/mm3 (4.30-5.90); White Blood Cell Count 9.72 K/mm3 (4.00-11.30)
[2021-06-09 13:30] LABS: Alanine Aminotransfer (ALT/SGP 27 U/L (12-78); Albumin, Blood 3.4 g/dL (3.4-5.0); Albumin/Globulin Ratio 0.8 (0.8-1.8); Alk Phos 84 U/L (50-136); Anion Gap 7 mmol/L (6-16); Aspartate Aminotrans (AST/SGOT 17 U/L (12-37); Bilirubin, Total 1.2 mg/dL (0.1-1.0); Blood Urea Nitrogen 9 mg/dL (8-24); CO2, Blood 25 mmol/L (21-32); Calcium, Blood 8.9 mg/dL (8.5-10.1); Chloride, Blood 104 mmol/L (98-108); Globulin, Blood 4.2 g/dL (2.2-4.0); Glomerular Filtration Rate >60 (60-); Glucose, Blood 118 mg/dL (70-99); Potassium, Blood 4.1 mmol/L (3.5-5.5); Sodium, Blood 136 mmol/L (136-145); Total Protein, Blood 7.6 g/dL (6.4-8.2)
[2021-06-09 13:31] LABS: Troponin I <0.015 ng/mL (0.000-0.040)
== END 2021-06-09 14:15 | disposition home or self-care (01) ==
LOC: ER 11:02
PROVIDERS: Emergency Medicine
DX: R07.1 Chest pain on breathing (principal); M25.511 Pain in right shoulder; Z20.822 Contact with and (suspected) exposure to COVID-19
CPT/HCPCS: 36415; 71046; 80053; 83690; 84484; 85025; 93005; 93010; 99283-25

== ENCOUNTER 2022-06-27 14:32 | Inpatient (IN) | payer MEDICARE, OTHER ==
[~2022-06-27] VITALS: Ht 177.8 cm; Wt 91.3 kg
[2022-06-27 15:33] LABS: BASOPHILS ABSOLUTE AUTO 0.03 K/mm3 (0.00-0.23); BASOPHILS PERCENT AUTO 0 % (0-2); EOSINOPHILS ABSOLUTE AUTO 0.01 K/mm3 (0.00-0.68); EOSINOPHILS PERCENT AUTO 0 % (0-6); Hematocrit 51.1 % (37.0-53.0); Hemoglobin 16.6 g/dL (13.5-17.5); IMMATURE GRAN ABSOLUTE AUTO 0.07 K/mm3 (0.00-0.10); IMMATURE GRAN PERCENT AUTO 1 % (0-1); LYMPHOCYTES ABSOLUTE AUTO 1.48 K/mm3 (0.84-5.20); LYMPHOCYTES PERCENT AUTO 10 % (21-46); MONOCYTES ABSOLUTE AUTO 1.47 K/mm3 (0.16-1.47); MONOCYTES PERCENT AUTO 10 % (4-13); Mean Corpuscular HGB 29.2 pg (26.0-34.0); Mean Corpuscular HGB Conc 32.5 g/dL (31.5-36.5); Mean Corpuscular Volume 90 fL (80-100); Mean Platelet Volume 9.7 fL (9.1-12.4); NEUTROPHILS ABSOLUTE AUTO 11.39 K/mm3 (1.96-9.15); NEUTROPHILS PERCENT AUTO 79 % (41-73); Platelet Count 175 K/mm3 (150-400); RDW Coefficient Variation 19.1 % (11.7-14.2); RDW Standard Deviation 59.3 fL (35.1-46.3); Red Blood Cell Count 5.68 M/mm3 (4.30-5.90); White Blood Cell Count 14.45 K/mm3 (4.00-11.30)
[2022-06-27 16:05] LABS: Albumin, Blood 3.6 g/dL (3.4-5.0); Albumin/Globulin Ratio 0.8 (0.8-1.8); Bilirubin, Total 1.1 mg/dL (0.1-1.0); Bun/Creatinine Ratio 11.4 (12.0-20.0); Calcium, Blood 9.2 mg/dL (8.5-10.1); Creatinine, Blood 0.87 mg/dL (0.60-1.20); Globulin, Blood 4.6 g/dL (2.2-4.0); Potassium, Blood 4.3 mmol/L (3.5-5.5); Total Protein, Blood 8.2 g/dL (6.4-8.2)
[2022-06-27] MEDS ORDERED: PERCOCET 10-321 EA10 PO (17:43)
[2022-06-27 19:52] LABS: Anti-Xa UFH, PHA Monitoring <0.10 IU/mL; International Normalized Ratio 1.15
[2022-06-27 21:05] LABS: Influenza A, PCR NEGATIVE (NEGATIVE); Influenza B, PCR NEGATIVE (NEGATIVE); Resp Syncytial Virus, PCR NEGATIVE (NEGATIVE); SARS-Cov-2 (COVID-19) PCR, MMC NEGATIVE (NEGATIVE)
--- NOTE | 2022-06-28 00:11 | NUR ---
CALL TO CONFIRMED WITH DR CHAPIN TO RESTART HEPARIN AT 18 UNITS/KG/HR WITH PHARMACY MANAGEMENT. DR CHAPIN STATED,"RUN IT LIKE HE NEVER WENT TO CYTOGENETICIST UNDER THE DVT/PE PROTOCOL". NOTIFIED PHARMACY
[2022-06-28 05:26] LABS: BASOPHILS ABSOLUTE AUTO 0.04 K/mm3 (0.00-0.23); BASOPHILS PERCENT AUTO 0 % (0-2); EOSINOPHILS ABSOLUTE AUTO 0.04 K/mm3 (0.00-0.68); EOSINOPHILS PERCENT AUTO 0 % (0-6); Hematocrit 36.3 % (37.0-53.0); Hemoglobin 11.7 g/dL (13.5-17.5); IMMATURE GRAN ABSOLUTE AUTO 0.05 K/mm3 (0.00-0.10); IMMATURE GRAN PERCENT AUTO 0 % (0-1); LYMPHOCYTES ABSOLUTE AUTO 1.43 K/mm3 (0.84-5.20); LYMPHOCYTES PERCENT AUTO 10 % (21-46); MONOCYTES ABSOLUTE AUTO 1.69 K/mm3 (0.16-1.47); MONOCYTES PERCENT AUTO 12 % (4-13); Mean Corpuscular HGB 28.9 pg (26.0-34.0); Mean Corpuscular HGB Conc 32.2 g/dL (31.5-36.5); Mean Corpuscular Volume 90 fL (80-100); Mean Platelet Volume 9.5 fL (9.1-12.4); NEUTROPHILS ABSOLUTE AUTO 10.89 K/mm3 (1.96-9.15); NEUTROPHILS PERCENT AUTO 77 % (41-73); Platelet Count 151 K/mm3 (150-400); RDW Coefficient Variation 18.6 % (11.7-14.2); RDW Standard Deviation 59.9 fL (35.1-46.3); Red Blood Cell Count 4.05 M/mm3 (4.30-5.90); White Blood Cell Count 14.14 K/mm3 (4.00-11.30)
[2022-06-28 05:40] LABS: International Normalized Ratio 1.27; Prothrombin Time Results 13.1 Sec (9.7-11.5)
[2022-06-28 05:43] LABS: Anti-Xa UFH, PHA Monitoring 1.19 IU/mL
[2022-06-28 06:04] LABS: Albumin, Blood 2.5 g/dL (3.4-5.0); Albumin/Globulin Ratio 0.8 (0.8-1.8); Bilirubin, Total 1.1 mg/dL (0.1-1.0); Bun/Creatinine Ratio 12.6 (12.0-20.0); Calcium, Blood 7.9 mg/dL (8.5-10.1); Creatinine, Blood 0.87 mg/dL (0.60-1.20); Globulin, Blood 3.3 g/dL (2.2-4.0)
[2022-06-28 06:05] LABS: Total Protein, Blood 5.8 g/dL (6.4-8.2)
--- NOTE | 2022-06-28 06:33 | NUR ---
Summary. Pt arrived to ICU from ER at approximately 2129. A&0 x4, cooperative and following directions. On via NC at 5 L/min, pt c/o SOB and pain when coughing or deep breathing. at bedside. Dr. Echeverria at bedside at approximately 5, pt taken to manager labor relations at 2150. Upon return from manager labor relations, pt A&O, reported relief of SOB symptoms and decrease in chest pain. Heparin started, see emar for details. Pt remained supine in bed for several hours, now independent in bed. R/fem access site intact, no swelling/ecchymosis/pain noted. See shift assessment/notes for further details. Will continue to monitor and report off to dayshift RN.
--- NOTE | 2022-06-28 08:00 | NUR ---
Received report from Damion. Patient sleeping at time of report. He awakened shortly after when sterile technician arrived. He is alert and oriented and is able to communicate his needs. He is on 5L O2 via NC and sats 100% and reduced to 3 L O2 via NC and currently sats 94%. 91 Sr and staolics 100's. He has 20ga IV in LURDES and is infusing Heaprin at 15 units/kg/hr and fluids off, he also has 20ga LH and is flushed and SL'd. He uses urinal appropriatley. Patient has Flostasis device right groin with clear op site and is WNL's. He has colostomy luq and is intact with brown stool output. Dr Wiggins is coming by to see him.
--- NOTE | 2022-06-28 10:58 | NUR ---
Patient is alert and oriented in bed and has been on phone with family. Dr Wiggins by and made Adstrix tele. Spoke with Dr Jensen and he is done seeing patient. He is on 2L O2 via NC and sats 97% and will continue to wean. He has heparin off and started on his home dose Xarellto. He tolerated most of his regular diet and is now resting.
--- NOTE | 2022-06-28 13:44 | NUR ---
Patient has been resting and just awoke to eat a little lunch. He continues on 2L O2 via NC and sats 97%. Asked if he wants to get up and walk around and he stated he was going to sleep a little longer. He has been using his urinal and had approx 300 mls out about evefew hours for a total of 600 ml currently of dark lizzette urine.He is independent with positioning in bed and calls appropriately, he denies any current needs. VSS. Right groin site still WNL's.
--- NOTE | 2022-06-28 16:48 | NUR ---
Pulled flostat deviceand placed Wei dressing over and watched site for an hour. He then ambulated on east side and was mildly SOB and placed in chair. Then we walked him to shower and he showered for about 20 minutes and took O2 off while in shower Yenifer penaloza was then SOB and placed him on 4L O2 and had him slow breathing and is now doing better on 3L O2 and sats 96%. at bedside . Changed linen to regular sheets. He denies any current needs. He still states pain across nipple line when deep breath. Independent in bed with positioning. SHERRY, still slightly weak and is SBA.
--- NOTE | 2022-06-28 18:14 | NUR ---
Patient resting, right groin site WNL, Wei dressing intact. He remains on 3L O2 and sats 97%. Currently denies any SOB. PowerGlide LURDES dressing intact and site WNL's and LH 20ga flushed and SL. Uses urinal appropriately, has had 1200 ml lizzette urine out today. He has been slight hypotensive over last few hours.
--- NOTE | 2022-06-28 20:20 | NUR ---
Assumed care. Report received from shonda THAKKAR. Pt resting in bed ATT. A&O x4, on 02 via NC at 4 L/min. No acute needs at this time, will continue to monitor.
[2022-06-29 03:53] LABS: Hematocrit 33.7 % (37.0-53.0); Hemoglobin 10.8 g/dL (13.5-17.5); Mean Corpuscular HGB 28.6 pg (26.0-34.0); Mean Corpuscular Volume 89 fL (80-100); Mean Platelet Volume 9.3 fL (9.1-12.4); Platelet Count 135 K/mm3 (150-400); RDW Coefficient Variation 18.6 % (11.7-14.2); RDW Standard Deviation 60.4 fL (35.1-46.3); Red Blood Cell Count 3.77 M/mm3 (4.30-5.90); White Blood Cell Count 14.41 K/mm3 (4.00-11.30)
[2022-06-29 04:28] LABS: Albumin, Blood 2.4 g/dL (3.4-5.0); Anion Gap 6 mmol/L (6-16); Blood Urea Nitrogen 13 mg/dL (8-24); Bun/Creatinine Ratio 18.5 (12.0-20.0); CO2, Blood 25 mmol/L (21-32); Calcium, Blood 8.2 mg/dL (8.5-10.1); Chloride, Blood 105 mmol/L (98-108); Glomerular Filtration Rate 99 (60-); Glucose, Blood 123 mg/dL (70-99); Phosphorus, Blood 2.2 mg/dL (2.5-4.9); Potassium, Blood 3.7 mmol/L (3.5-5.5); Sodium, Blood 136 mmol/L (136-145)
--- NOTE | 2022-06-29 06:22 | NUR ---
Shift summary. Pt rested in bed throughout shift. A&O, on 02 via NC at 4 L/min. No acute events overnight, VS stable. See shift assessment for further details. Will continue to monitor and report off to dayshift RN.
--- NOTE | 2022-06-29 07:16 | NUR ---
ASSUMED CARE: PT RESTING QUIETLY AT THIS TIME. SATTING 98% ON RA. NO TELE. KPHOS RUNNING PER ORDERS. NO ACUTE NEEDS OR CONCERNS AT THIS TIME.
[2022-06-29] MEDS ORDERED: BENZ100A PO (11:35)
[2022-06-29] MEDS ORDERED: XARELTO20 MG PO (11:36)
[2022-06-29] MEDS ORDERED: MIRALAX17 GM PO (11:36)
--- NOTE | 2022-06-29 12:48 | NUR ---
INSTRUCTIONS GIVEN TO PT AND REGARDING FOLLOW UP APPOINTMENTS AND FOLLOW UP LABS. GAVE INSTRUCTIONS REGARDING NEW MEDICATIONS. DENIED QUESTIONS OR CONCERNS. ESCORTED OUT VIA WHEEL CHAIR BY HOSPITAL STAFF.
--- NOTE | 2022-06-29 12:54 | NUR ---
Spiritual care visit conducted. Pt is lying in bed and alert. Pt, at length, tells me about the of his mom (last August), his family unit complications, his medical problems and his Religious nani. I encourage self-care, listen empathically and provide grief support and prayer. Pt responds well and shows signs of being encouraged in his nani. I will continue to remain available to pt and family.
== END 2022-06-29 12:30 | disposition home or self-care (01) | DRG 164 ==
LOC: ER 14:32 → ICUW 19:21 → ICUE 19:21 → ICUW 21:01 → ICUE 23:16
PROVIDERS: Emergency Medicine; Internal Medicine; Nurse Practitioner Acute Care; Pharmacist; Radiology Diagnostic Radiology; Student in an Organized Health Care Education/Training Program; ADMIT Internal Medicine
PROC: 06H03DZ Insertion of Intraluminal Device into Inferior Vena Cava, Percutaneous Approach (ICD-10-PCS; principal; 2022-06-27)
PROC: 02CQ3ZZ Extirpation of Matter from Right Pulmonary Artery, Percutaneous Approach (ICD-10-PCS; 2022-06-27)
PROC: 02CR3ZZ Extirpation of Matter from Left Pulmonary Artery, Percutaneous Approach (ICD-10-PCS; 2022-06-27)
PROC: B5191ZZ Fluoroscopy of Inferior Vena Cava using Low Osmolar Contrast (ICD-10-PCS; 2022-06-27)
DX: I26.92 Saddle embolus of pulmonary artery without acute cor pulmonale (principal); C78.6 Secondary malignant neoplasm of retroperitoneum and peritoneum; I82.412 Acute embolism and thrombosis of left femoral vein; R18.8 Other ascites; I82.432 Acute embolism and thrombosis of left popliteal vein; I82.452 Acute embolism and thrombosis of left peroneal vein; I27.20 Pulmonary hypertension, unspecified; D69.6 Thrombocytopenia, unspecified; D72.829 Elevated white blood cell count, unspecified; E83.39 Other disorders of phosphorus metabolism; R77.8 Other specified abnormalities of plasma proteins; I08.2 Rheumatic disorders of both aortic and tricuspid valves; Z20.822 Contact with and (suspected) exposure to COVID-19; Z91.14 Patient's other noncompliance with medication regimen; Z85.038 Personal history of other malignant neoplasm of large intestine; Z85.89 Personal history of malignant neoplasm of other organs and systems; Z92.21 Personal history of antineoplastic chemotherapy; Z92.25 Personal history of immunosuppression therapy; Z79.899 Other long term (current) drug therapy; Z79.01 Long term (current) use of anticoagulants; Z87.828 Personal history of other (healed) physical injury and trauma; Z98.890 Other specified postprocedural states; Z93.3 Colostomy status; Z95.828 Presence of other vascular implants and grafts; Z90.49 Acquired absence of other specified parts of digestive tract; Z79.891 Long term (current) use of opiate analgesic
CPT/HCPCS: 0241U; 36415; 37184; 37185; 37191; 71045; 71260; 75743; 75820; 75825; 76937; 80053; 80069; 83690; 83735; 84145; 84484; 85025; 85027; 85379; 85520; 85610; 85730; 93005; 93010; 93306; 93970; 96374-59; 96375-59; 96376-59; 99152; 99153; 99285-25; A9270; C1751; C1769; C1880; C1887; C1894; J1644; J2250; J2270; J3010; J7030; J7040; J7060; Q9967

== ENCOUNTER 2022-10-06 09:04 | Day surgery (SDC) | payer MEDICARE, OTHER ==
[~2022-10-06] VITALS: Ht 177.8 cm; Wt 90.7 kg
[~2022-10-06 09:04] MED LIST changes: +BENZ100A PO; +MIRALAX17 GM PO; +PERCOCET 10-321 EA10 PO; +XARELTO20 MG PO
--- NOTE | 2022-10-06 13:25 | NUR ---
PT RETURNED TO RECOVERY ROOM IN BED. RIGHT FEMORAL VEIN SITE AND RIGHT IJ VEIN SITE SOFT NON-TENDER WITH NO HEMATOMA AND NO BLEEDING. CALL LIGHT IN REACH. PT DENIES CHEST PAIN.
--- NOTE | 2022-10-06 13:46 | NUR ---
DISCHARGE INSTRUCTIONS REVIEWED ALL QUESTIONS ANSWERED.
--- NOTE | 2022-10-06 13:48 | NUR ---
NO CHANGES TO R IJ VEIN SITE; NO CHANGES TO R FEM VEIN SITE.
--- NOTE | 2022-10-06 13:50 | NUR ---
FULL REPORT PROVIDED BIJAN PATINO TO ASSUME CARE OF PT.
--- NOTE | 2022-10-06 14:31 | NUR ---
PT UP TO BATHROOM, BOTH SITES REMAIN STABLE. DISCHARGE REVIEWED WITH PT. SALINE LOCK REMOVED WITH CATHETER INTACT. PT DRESSED PER SELF AND SITES REMAIN STABLE. PT DISCHARGED PER W/C WITH DISCHARGE VOLUNTEER.
== END 2022-10-06 14:30 | disposition home or self-care (01) ==
LOC: MHTC 09:04
DX: Z95.828 Presence of other vascular implants and grafts (principal); Z86.711 Personal history of pulmonary embolism; I10 Essential (primary) hypertension
CPT/HCPCS: 76937; 99152; 99153; C1769; C1773; C1887; C1894; J1644; J2250; J3010; J7030; Q9967

== ENCOUNTER 2022-10-09 21:21 | Emergency (ER) | payer MEDICARE, OTHER ==
[~2022-10-09] VITALS: Ht 177.8 cm; Wt 86.6 kg
[2022-10-09 22:12] LABS: BASOPHILS ABSOLUTE AUTO 0.03 K/mm3 (0.00-0.23); BASOPHILS PERCENT AUTO 0 % (0-2); EOSINOPHILS ABSOLUTE AUTO 0.02 K/mm3 (0.00-0.68); EOSINOPHILS PERCENT AUTO 0 % (0-6); Hemoglobin 12.8 g/dL (13.5-17.5); IMMATURE GRAN ABSOLUTE AUTO 0.04 K/mm3 (0.00-0.10); IMMATURE GRAN PERCENT AUTO 0 % (0-1); LYMPHOCYTES ABSOLUTE AUTO 0.99 K/mm3 (0.84-5.20); LYMPHOCYTES PERCENT AUTO 7 % (21-46); MONOCYTES ABSOLUTE AUTO 1.62 K/mm3 (0.16-1.47); MONOCYTES PERCENT AUTO 11 % (4-13); Mean Corpuscular HGB 29.4 pg (26.0-34.0); Mean Corpuscular HGB Conc 32.8 g/dL (31.5-36.5); Mean Corpuscular Volume 89 fL (80-100); Mean Platelet Volume 9.2 fL (9.1-12.4); NEUTROPHILS ABSOLUTE AUTO 11.91 K/mm3 (1.96-9.15); NEUTROPHILS PERCENT AUTO 82 % (41-73); Platelet Count 228 K/mm3 (150-400); RDW Coefficient Variation 19.1 % (11.7-14.2); RDW Standard Deviation 62.4 fL (35.1-46.3); Red Blood Cell Count 4.36 M/mm3 (4.30-5.90); White Blood Cell Count 14.61 K/mm3 (4.00-11.30)
[2022-10-09 22:31] LABS: Albumin, Blood 3.5 g/dL (3.4-5.0); Albumin/Globulin Ratio 0.9 (0.8-1.8); Bun/Creatinine Ratio 18.8 (12.0-20.0); Calcium, Blood 9.2 mg/dL (8.5-10.1); Creatinine, Blood 1.12 mg/dL (0.60-1.20); Potassium, Blood 4.1 mmol/L (3.5-5.5); Total Protein, Blood 7.5 g/dL (6.4-8.2)
[2022-10-10] MEDS ORDERED: ONDA8 PO (01:34)
== END 2022-10-10 07:09 | disposition home or self-care (01) ==
LOC: ER 21:21
PROVIDERS: Student in an Organized Health Care Education/Training Program
DX: J90 Pleural effusion, not elsewhere classified (principal); C18.1 Malignant neoplasm of appendix; D64.9 Anemia, unspecified; I82.411 Acute embolism and thrombosis of right femoral vein; I82.461 Acute embolism and thrombosis of right calf muscular vein; I82.890 Acute embolism and thrombosis of other specified veins; Z79.02 Long term (current) use of antithrombotics/antiplatelets
CPT/HCPCS: 36415; 71046; 71260; 80053; 83880; 84484; 85025; 93005; 93010; 93970; 99284-25; A9270; Q9967

== ENCOUNTER 2022-12-24 12:35 | Inpatient (IN) | payer MEDICARE, OTHER ==
[~2022-12-24] VITALS: Ht 177.8 cm; Wt 84.7 kg
[~2022-12-24 12:35] MED LIST changes: +ELIQUIS5 M2 PO; +ONDA8 PO
[2022-12-24 13:47] LABS: BASOPHILS ABSOLUTE AUTO 0.04 K/mm3 (0.00-0.23); BASOPHILS PERCENT AUTO 0 % (0-2); EOSINOPHILS ABSOLUTE AUTO 0.02 K/mm3 (0.00-0.68); EOSINOPHILS PERCENT AUTO 0 % (0-6); Hematocrit 39.4 % (37.0-53.0); Hemoglobin 12.3 g/dL (13.5-17.5); IMMATURE GRAN ABSOLUTE AUTO 0.06 K/mm3 (0.00-0.10); IMMATURE GRAN PERCENT AUTO 0 % (0-1); LYMPHOCYTES ABSOLUTE AUTO 0.85 K/mm3 (0.84-5.20); LYMPHOCYTES PERCENT AUTO 6 % (21-46); MONOCYTES ABSOLUTE AUTO 1.19 K/mm3 (0.16-1.47); MONOCYTES PERCENT AUTO 8 % (4-13); Mean Corpuscular HGB 27.5 pg (26.0-34.0); Mean Corpuscular HGB Conc 31.2 g/dL (31.5-36.5); Mean Corpuscular Volume 88 fL (80-100); Mean Platelet Volume 9.3 fL (9.1-12.4); NEUTROPHILS ABSOLUTE AUTO 12.46 K/mm3 (1.96-9.15); NEUTROPHILS PERCENT AUTO 85 % (41-73); Platelet Count 449 K/mm3 (150-400); RDW Standard Deviation 54.4 fL (35.1-46.3); Red Blood Cell Count 4.48 M/mm3 (4.30-5.90); White Blood Cell Count 14.62 K/mm3 (4.00-11.30)
[2022-12-24 14:01] LABS: Albumin/Globulin Ratio 0.7 (0.8-1.8); Bilirubin, Total 0.7 mg/dL (0.1-1.0); Bun/Creatinine Ratio 20.4 (12.0-20.0); Calcium, Blood 10.4 mg/dL (8.5-10.1); Creatinine, Blood 0.64 mg/dL (0.60-1.20); Globulin, Blood 4.6 g/dL (2.2-4.0); Potassium, Blood 3.6 mmol/L (3.5-5.5); Total Protein, Blood 7.6 g/dL (6.4-8.2)
[2022-12-24 16:06] LABS: Source, Urine Clean Catch
[2022-12-24 16:22] LABS: Appearance, Urine Clear (Clear); Blood, Urine Neg (Neg); Color, Urine Amber (P-Yellow); Glucose Qualitative, Urine Neg (Neg); Ketones, Urine 3+ (Neg); Leukocyte Esterase, Urine 1+ (Neg); Nitrite, Urine Neg (Neg); Protein, Urine 2+ (Neg); Specific Gravity, Urine 1.025 (1.003-1.022); Urobilinogen, Urine 2+ (Normal)
[2022-12-24 16:33] LABS: Bilirubin, Urine 2+ (Neg)
[2022-12-24 16:34] LABS: Calcium Oxalate Crystals Many /hpf; Mucus Mod (0-Heavy)
[2022-12-24 16:37] LABS: Bacteria Few /hpf; Red Blood Cells, Urine 0-2 /hpf (0-2); Squamous Epithelial Cells Not Seen /hpf (Few)
[2022-12-24 19:02] LABS: International Normalized Ratio 1.13; Prothrombin Time Results 11.8 Sec (9.7-11.5)
[2022-12-25 01:19] LABS: Hematocrit 33.1 % (37.0-53.0); Hemoglobin 10.2 g/dL (13.5-17.5); Mean Corpuscular HGB 27.6 pg (26.0-34.0); Mean Corpuscular HGB Conc 30.8 g/dL (31.5-36.5); Mean Corpuscular Volume 90 fL (80-100); Mean Platelet Volume 9.1 fL (9.1-12.4); Platelet Count 264 K/mm3 (150-400); RDW Coefficient Variation 17.2 % (11.7-14.2); RDW Standard Deviation 56.8 fL (35.1-46.3); Red Blood Cell Count 3.69 M/mm3 (4.30-5.90); White Blood Cell Count 9.05 K/mm3 (4.00-11.30)
--- NOTE | 2022-12-25 05:18 | NUR ---
HEATER TENDER SUMMARY/NEW ADMIT PT A/OX4. ABLE TO MAKE NEEDS KNOWN; STEADY ON FEET. SBA DUE TO LINES; USING URINAL AT BEDSIDE. COLOSTOMY IN LEFT LOWER QUAD W/LIGHT BROWN PASTY OUTPUT. NEW ADMIT W/PNA AND RT PLEURAL EFFUSION--PT TO HAVE THORACENTESIS. ON HEP DRIP; RATE ADJUSTED TO 20U/KG/HR AND BOLUS GIVEN W/RATE ADJUST. PT SKIN INTACT. LEFT CHEST WALL PORT F/CHEMO TREATMENTS. LAST TREATMENT WAS 12/07/22. NS INFUSING IN RT FA IV; HEP INFUSING IN LEFT FA IV. PT ORIENTED TO ROOM AND CALL LIGHT. CALL LIGHT ACCESSIBLE.
--- NOTE | 2022-12-25 09:41 | NUR ---
Patient is lying in bed and alert. Angelina tells me about the events that led to his hospitalization and the medical plan of care going forward. He shares about his 2 year long reyes with colon cancer and the mental, emotional and spiritual struggles that come with such physical pain and uncomfort. We explore the ways in which he manages these challenges, his support system and his nani. He shares about the loneliness and disappointments that he endures even with the solid anchors that he has in place. We talk about further plans to mitigate the inner darker thoughts. I normalize his experience, and provide therapeutic listening and prayer. Patient responds well and shows signs of having greater peace and direction. I will continue to remain available to patient and family.
[2022-12-25 12:18] LABS: Automated BF WBC Count 0.625 K/mm3 (0-999)
[2022-12-25 12:25] LABS: Lactate Dehydrogenase, Body Fl 160 U/L
[2022-12-25 12:26] LABS: Body Fluid WBC Count 625 /mm3 (0-999)
[2022-12-25 13:07] LABS: RBC Count, Body Fluid 55 /mm3 (0-0)
[2022-12-25 13:16] LABS: Total Cell Count, Body Fluid 100
[2022-12-25 13:17] LABS: Appearance, Body Fluid Hazy (Clear); Color, Body Fluid Yellow (None-Yellow)
--- NOTE | 2022-12-25 19:23 | NUR ---
MAKES NEEDS KNOWN, [id number] DIAPHRAM DISCOMFORT, REPORTED TO DR BAUTISTA, PATIENT TO HAVE ABD IMAGING THIS EVENING, REPORTED TO PM RN, CALL LIGHT WITH IN REACH
[2022-12-26 01:06] LABS: Hematocrit 30.7 % (37.0-53.0); Hemoglobin 9.6 g/dL (13.5-17.5); Mean Corpuscular HGB Conc 31.3 g/dL (31.5-36.5); Mean Corpuscular Volume 90 fL (80-100); Mean Platelet Volume 9.4 fL (9.1-12.4); Platelet Count 232 K/mm3 (150-400); RDW Coefficient Variation 17.3 % (11.7-14.2); RDW Standard Deviation 57.1 fL (35.1-46.3); Red Blood Cell Count 3.43 M/mm3 (4.30-5.90); White Blood Cell Count 8.51 K/mm3 (4.00-11.30)
[2022-12-26 01:27] LABS: Albumin, Blood 2.2 g/dL (3.4-5.0); Anion Gap 6 mmol/L (6-16); Blood Urea Nitrogen 10 mg/dL (8-24); Bun/Creatinine Ratio 18.3 (12.0-20.0); CO2, Blood 29 mmol/L (21-32); Chloride, Blood 102 mmol/L (98-108); Creatinine, Blood 0.55 mg/dL (0.60-1.20); Glomerular Filtration Rate 106 (60-); Glucose, Blood 125 mg/dL (70-99); Phosphorus, Blood 2.3 mg/dL (2.5-4.9); Potassium, Blood 3.3 mmol/L (3.5-5.5); Sodium, Blood 137 mmol/L (136-145)
--- NOTE | 2022-12-26 05:10 | NUR ---
ELECTRICAL TECHNICIAN SUMMARY PT A/OX4. ABLE TO MAKE NEEDS KNOWN. PT LOOKS FATIGUED AND HAD BEEN HAVING NAUSEA EARLIER IN THE DAY POST THORACENTESIS. DAY SHIFT REPORTED NO OUTPUT FROM COLOSTOMY SINCE LUNCH TIME; NO OUTPUT OBSERVED BY THIS NURSE. PT ABD FIRM AND TENDER W/DESTENTION AROUND THE AREA OF OSTOMY AND ABOVE. PT TAKEN FOR CT SCAN OF ABD W/CONTRAST. SPOKE WITH PHARMACY WHO APPROVED DISCONNECTING HEPARIN DRIP FOR PROCEDURE. PT WAS DISCONNECTED BETWEEN [id number]. NOTED CLEAR LUNG SOUNDS IN LEFT LOBE AND UPPER RIGHT; NOTED A RUB/CLICK SOUND IN LOWER RT LUNG. PT REPORTING INHALATION IS TENDER. HEP DRIP RUNNING IN LEFT FOREARM IV; NS FLUIDS 75MLS/HR IN RIGHT AC. PT USING URINAL AT BEDSIDE AND CALLS APPROPRIATELY. CALL LIGHT ACCESSIBLE. PT REPORTING SOME PAIN BUT REFUSING MEDS T/O THE SHIFT. APROX 0430 PT REQ PAIN MEDS. MED P/EMAR W/SOME EFFECT.
--- NOTE | 2022-12-26 17:50 | NUR ---
PLESANT, ALERT AND ORIENTED, MAKES NEEDS KNOWN, DR PAGE CONSULTED WITH PATIENTS ONCOLOGIST REGARDING RIGH ABD DISTENTION, NO ACUTE CHANGES, NO OUT PUT FROM COLOSTOMY, WANTING TO TAKE A SHOWER WHEN HE IS DISCHARGED. DENIED PAIN OR NAUSEA TODAY, CALL LIGHT WITH IN REACH, WILL RELAY TO PM RN
--- NOTE | 2022-12-26 22:16 | NUR ---
PT RESTING QUIETLY. URINE OUTPUT GOOD. THERMOSTAT TURNED DOWN, PT TOO WARM. NO OTHER NEEDS. CALL LT IN REACH.
--- NOTE | 2022-12-27 00:10 | NUR ---
PT RESTING QUIETLY. CALL LT IN REACH.
--- NOTE | 2022-12-27 02:10 | NUR ---
OSTOMY APPLIANCE BEING REPLACED. PT STATES IT'S TIME TO CHANGE IT. PT NORMALLY SELF CARES APPLIANCE CHANGING. STAFF ASSISTING PT.
--- NOTE | 2022-12-27 04:22 | NUR ---
PT RESTING QUIETLY. CALL LT IN REACH.
--- NOTE | 2022-12-27 04:45 | NUR ---
SHIFT SUMMARY: MEDICATED PT ONCE FOR CHRONIC BACK PAIN AND ACUTE LEFTSIDED ABDOMINAL PAIN WITH 25 MCG OF IV FENTANYL WITH FAIR RESULTS, PT REPORTED PAIN LEVEL WAS IMPROVING. ON RA. SINUS RHYTHM AT 77 ON TELE. BOWEL CARE GIVEN DURING MED PASS. OSTOMY APPLIANCE CHANGED VITAMIN MANAGER. ABD IS FIRM AND DISTENDED. NO NAUSEA REPORTED. PT IS AMBULATORY. NO ACUTE CHANGES. WILL CONTINUE TO PROVIDE CARE UNTIL SHIFT REPORT TO ONCOMING NURSE. CALL LT IN REACH.
--- NOTE | 2022-12-27 06:20 | NUR ---
PT RESTING QUIETLY. CALL LT IN REACH.
--- NOTE | 2022-12-27 18:49 | NUR ---
NO OUTPUT FROM COLOSTOMY, MEDICATED WITH MIRALAX, GI UNTIL 12/29/2022, MEDICATED WITH FENTANYL, ALERT AND ORIENTED, MAKES NEEDS KNOWN, PLEASANT TO ALL CARE
[2022-12-28 04:17] LABS: BASOPHILS ABSOLUTE AUTO 0.02 K/mm3 (0.00-0.23); BASOPHILS PERCENT AUTO 0 % (0-2); EOSINOPHILS ABSOLUTE AUTO 0.04 K/mm3 (0.00-0.68); EOSINOPHILS PERCENT AUTO 0 % (0-6); Hemoglobin 11.2 g/dL (13.5-17.5); IMMATURE GRAN ABSOLUTE AUTO 0.03 K/mm3 (0.00-0.10); IMMATURE GRAN PERCENT AUTO 0 % (0-1); LYMPHOCYTES ABSOLUTE AUTO 0.72 K/mm3 (0.84-5.20); LYMPHOCYTES PERCENT AUTO 8 % (21-46); MONOCYTES ABSOLUTE AUTO 1.26 K/mm3 (0.16-1.47); MONOCYTES PERCENT AUTO 13 % (4-13); Mean Corpuscular HGB 27.2 pg (26.0-34.0); Mean Corpuscular HGB Conc 31.1 g/dL (31.5-36.5); Mean Corpuscular Volume 87 fL (80-100); Mean Platelet Volume 9.3 fL (9.1-12.4); NEUTROPHILS ABSOLUTE AUTO 7.39 K/mm3 (1.96-9.15); NEUTROPHILS PERCENT AUTO 78 % (41-73); Platelet Count 253 K/mm3 (150-400); RDW Coefficient Variation 16.9 % (11.7-14.2); RDW Standard Deviation 54.8 fL (35.1-46.3); Red Blood Cell Count 4.12 M/mm3 (4.30-5.90); White Blood Cell Count 9.46 K/mm3 (4.00-11.30)
[2022-12-28 04:31] LABS: Bun/Creatinine Ratio 12.6 (12.0-20.0); Calcium, Blood 8.6 mg/dL (8.5-10.1); Creatinine, Blood 0.56 mg/dL (0.60-1.20); Potassium, Blood 3.5 mmol/L (3.5-5.5)
--- NOTE | 2022-12-28 06:31 | NUR ---
PT IS A&O4, SB TO THE BR USES URINAL, RA, VSS, NO OUTPUT FROM COLOSTOMY THIS SHIFT, PRN PAIN MEDICATION GIVEN PER MAR, CONTINUE POC
--- NOTE | 2022-12-28 11:59 | NUR ---
Patient is lying in bed and alert. He tells me that is struggling with pain that he had already been given all that is in his chart for pain management. He talks about his weariness in the mental/emotional/physical relms and that the pain and discomfort make this season so challenging. He is easily encouraged by conversation and time. I provide therapeutic listening and prayer. Awilda responded well and showed signs of an elevated mood.
--- NOTE | 2022-12-28 19:10 | NUR ---
THIS RN PLACED NG TUBE AT 20" AND VERIFICATION WAS CHECKED BY 1V CXR. RADIOLOGIST OKAY WITH PLACEMENT. 50ML OUTPUT VISUALIZED WITH PLACEMENT-CLEAR, BORWN, AND SLIGHTLY RED. PT TOLERATED WELL.
--- NOTE | 2022-12-29 05:48 | NUR ---
PT IS A&O4, SB TO THE BR, NG TUBE PATENT HOOKED TO LOW INTERMITTENT SUCTION PT TOLERATING OK, PRN PAIN MEDICATION GIVEN PER EMAR, CONTINUE POC
[2022-12-29 06:09] LABS: Calcium, Blood 8.6 mg/dL (8.5-10.1); Creatinine, Blood 0.53 mg/dL (0.60-1.20); Potassium, Blood 3.5 mmol/L (3.5-5.5)
--- NOTE | 2022-12-29 16:28 | NUR ---
Patient immediately tells me about the new changes with his medical care plan and how his is hopeful for some relief to his discomfort and pain. He is also hoping for more mobility and strength for when he returns home especially because no one is present at his home for the several weeks. He tells me about his family unit complications and then about his and how they met. We talk about his nani and I provide prayer. The conversation is meaningful because his family is out of town and he is feeling lonely. I will linda to remain available to the patient and his family.
--- NOTE | 2022-12-29 17:44 | NUR ---
SHIFT SUMMARY- PT'S PAIN IS MILD TODAY. NO PAIN MEDS REQUIRED. NO OUTPUT FROM NG TUBE THIS SHIFT. NO OUTPUT FROM COLOSTOMY BAG THIS SHIFT.
--- NOTE | 2022-12-30 05:23 | NUR ---
PT IS A&O4, SB WITH WALKER USES URINAL, RA, NG TUBE HOOKED TO LOW INT SUCTION, VERY LITTLE OUTPUT THIS SHIFT, PRN PAINMEDICATION GIVEN PER EMAR, VSS, CONTINUE POC
[2022-12-30 16:05] LABS: Hematocrit 34.1 % (37.0-53.0); Hemoglobin 10.7 g/dL (13.5-17.5); Mean Platelet Volume 9.3 fL (9.1-12.4); Platelet Count 257 K/mm3 (150-400)
[2022-12-30 16:18] LABS: International Normalized Ratio 1.14; Prothrombin Time Results 11.9 Sec (9.7-11.5)
--- NOTE | 2022-12-30 16:21 | NUR ---
Spiritual care visit conducted. Patient talks about his improvement and the possibility to d/c home tomorrow. He shares about his hobbies, his project car and his family unit complications. Patient is elevated in his mood as he shares about the things he is passionate about. I provide therapeutic listening and prayer. Patient responds well and becomes tearful at the prayer and then thanks God for the time and care provided. I will continue to remain available to patient and family.
--- NOTE | 2022-12-30 18:37 | NUR ---
MAKES NEEDS KNOWN,PAITENT TOLERATING SIPS AND CHIPS AND POPSICLES, NO NV, REMOVED NG TUBE PER DR DAVIDSON, VIBHA GAYTAN, NEW IV TO LEFT FOREARM FOR HEPARIN GTT RESTARTED. COLOSTOMY PRODUCING STOOL, PLEASANT TO CARE, WILL RELAY TO PM BIJAN
[2022-12-31 00:56] LABS: BASOPHILS ABSOLUTE AUTO 0.03 K/mm3 (0.00-0.23); BASOPHILS PERCENT AUTO 0 % (0-2); EOSINOPHILS ABSOLUTE AUTO 0.04 K/mm3 (0.00-0.68); EOSINOPHILS PERCENT AUTO 1 % (0-6); Hematocrit 34.7 % (37.0-53.0); Hemoglobin 10.9 g/dL (13.5-17.5); IMMATURE GRAN ABSOLUTE AUTO 0.03 K/mm3 (0.00-0.10); IMMATURE GRAN PERCENT AUTO 0 % (0-1); LYMPHOCYTES ABSOLUTE AUTO 0.69 K/mm3 (0.84-5.20); LYMPHOCYTES PERCENT AUTO 9 % (21-46); MONOCYTES ABSOLUTE AUTO 1.27 K/mm3 (0.16-1.47); MONOCYTES PERCENT AUTO 17 % (4-13); Mean Corpuscular HGB 27.5 pg (26.0-34.0); Mean Corpuscular HGB Conc 31.4 g/dL (31.5-36.5); Mean Corpuscular Volume 88 fL (80-100); Mean Platelet Volume 9.3 fL (9.1-12.4); NEUTROPHILS ABSOLUTE AUTO 5.52 K/mm3 (1.96-9.15); NEUTROPHILS PERCENT AUTO 73 % (41-73); Platelet Count 238 K/mm3 (150-400); RDW Coefficient Variation 17.3 % (11.7-14.2); RDW Standard Deviation 55.2 fL (35.1-46.3); Red Blood Cell Count 3.96 M/mm3 (4.30-5.90); White Blood Cell Count 7.58 K/mm3 (4.00-11.30)
[2022-12-31 01:12] LABS: Bun/Creatinine Ratio 13.2 (12.0-20.0); Calcium, Blood 8.1 mg/dL (8.5-10.1); Creatinine, Blood 0.45 mg/dL (0.60-1.20); Potassium, Blood 3.1 mmol/L (3.5-5.5)
--- NOTE | 2022-12-31 05:55 | NUR ---
PT IS A&O4, SB TO BR USES URINAL, NG TUBE REMOVED YESTERDAY AFTERNOON COLOSTOMY PRODUCING STOOL, PT IS TOLERATING ICE AND POPSICLES, HEPARIN DRIP AT 28.6ML/HR, NO COMPLAINTS OF PAIN THIS SHIFT, CONTINUE POC
--- NOTE | 2022-12-31 15:29 | NUR ---
Spiritual care visit conducted. Short visit today. Encouragement and prayer provided prior to Dnetal Hygienist came in. I allow her to assist patient.
--- NOTE | 2022-12-31 18:20 | NUR ---
PT A/O X 4, ONE ASSIST, PLEASANT AND COOPERATIVE WITH CARE. PT HAD GOOD OUTPUT TO OSTOMY THIS AM, WAS NOT ABLE TO TOLERATE HIS FULL LIQUID LUNCH. ABD PAIN INCREASED AND OUTPUT OF BM WAS VERY LITTLE. PT GIVEN CLEAR LIQUIDS AT DINNER. CONTINUES TO HAVE HYPERACTIVE BOWEL SOUNDS WITH FIRM ABD. PAIN MANAGED WITH FENTANYL AT THIS TIME. PT HAS NOT HAD ANY N/V AT THIS TIME. REPORTS "BURPING UP" HIS CHOCOLATE PUDDING STILL FROM LUNCH.
--- NOTE | 2023-01-01 05:15 | NUR ---
SHIFT SUMMARY NABIL WAS VERY UNCOMFORTABLE AT THE BEGINNING OF SHIFT FEELING NAUSEOUS AND FULL. PT DESCRIBED IT FEELING LIKE THE VOMIT AND ANYTHING HE ATE WAS SITTING IN THE BASE OF HIS THROAT. HE VOMITED SEVERAL TIMES AND HIS ABDOMEN WAS DISTENDED AND TIGHT. NG TUBE PLACED AT 2235. PT TOLERATED WELL. IMMEDIATLY BROWNIGH GREEN LIQUID BEGAN TO DRAIN FROM HIS TUBE AND HE WAS ABLE TO GET COMFORTABLE AND GET TO SLEEP. SO FAR THIS SHIFT PT HAD HAD 420 ML OUTPUT. PT COLOSTOMY HAS HAD NO OUTOUT, AND PT HAS NOT BEEN ABLE TO TOLERATE MEDICATIONOR FOOD, BUT FEELS RELIEF FROM PAIN. BED IN LOWEST POSITION AND CALL LIGHT IN REACH.
[2023-01-01 05:27] LABS: BASOPHILS ABSOLUTE AUTO 0.02 K/mm3 (0.00-0.23); BASOPHILS PERCENT AUTO 0 % (0-2); EOSINOPHILS ABSOLUTE AUTO 0.04 K/mm3 (0.00-0.68); EOSINOPHILS PERCENT AUTO 1 % (0-6); Hematocrit 34.7 % (37.0-53.0); Hemoglobin 10.9 g/dL (13.5-17.5); IMMATURE GRAN ABSOLUTE AUTO 0.03 K/mm3 (0.00-0.10); IMMATURE GRAN PERCENT AUTO 1 % (0-1); LYMPHOCYTES ABSOLUTE AUTO 0.69 K/mm3 (0.84-5.20); LYMPHOCYTES PERCENT AUTO 11 % (21-46); MONOCYTES ABSOLUTE AUTO 1.08 K/mm3 (0.16-1.47); MONOCYTES PERCENT AUTO 17 % (4-13); Mean Corpuscular HGB 27.5 pg (26.0-34.0); Mean Corpuscular HGB Conc 31.4 g/dL (31.5-36.5); Mean Corpuscular Volume 87 fL (80-100); Mean Platelet Volume 9.4 fL (9.1-12.4); NEUTROPHILS ABSOLUTE AUTO 4.47 K/mm3 (1.96-9.15); NEUTROPHILS PERCENT AUTO 71 % (41-73); Platelet Count 216 K/mm3 (150-400); RDW Coefficient Variation 17.1 % (11.7-14.2); RDW Standard Deviation 55.1 fL (35.1-46.3); Red Blood Cell Count 3.97 M/mm3 (4.30-5.90); White Blood Cell Count 6.33 K/mm3 (4.00-11.30)
[2023-01-01 06:38] LABS: Bun/Creatinine Ratio 11.2 (12.0-20.0); Calcium, Blood 8.5 mg/dL (8.5-10.1); Creatinine, Blood 0.45 mg/dL (0.60-1.20); Magnesium, Blood 1.9 mg/dL (1.6-2.4); Potassium, Blood 3.3 mmol/L (3.5-5.5)
--- NOTE | 2023-01-01 09:51 | NUR ---
Spiritual care visit conducted. Patient had a "rough night" and explains the pain and complications. He also talks about how disappointed he is in the setbacks and the slowness in recovery. We talk about his discouragement and ways to feel, manage it and still find sabrina and hope in the midst of it. I normalize pt's frustration and experience and provide therapeutic listening, gentle after school counselor and prayer. Patient responds well and shows signs of an increase in hope and an elevation in mood. I will cotninue to remain available to patient and family.
--- NOTE | 2023-01-01 15:41 | NUR ---
Supportive visit this afternoon. Pt resting in bed and is A&OX4. Pt denies pain at this time. Pt currently has NG tube with intermittent suction. Listened as Pt reports being , has a daughter, son, step daughter, and step son. Children all live in [place]. 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 current out of town on business. Reviewed plan of care with Pt and continued supportive visit. Palliative Care will remain available
--- NOTE | 2023-01-01 17:29 | NUR ---
SHIFT SUMMARY NO ACUTE CHANGES DURING SHIFT. PT ALERT AND ORIENTED,CALLS APPROPRIATELY. PT REMAINS ON RA. NGT IN PLACE, LIWS. HEPARIN INFUSING, RATE DECREASED TO 16U/KG/HR, 26.9ML/HR. POSSIBLE SB IMAGING THIS WEEKEND PER SURGERY. NO C/O PAIN. WILL CONTINUE TO MONITOR. CALL LIGHT WITHIN REACH.
[2023-01-02 02:16] LABS: BASOPHILS ABSOLUTE AUTO 0.03 K/mm3 (0.00-0.23); BASOPHILS PERCENT AUTO 1 % (0-2); Bun/Creatinine Ratio 10.5 (12.0-20.0); Creatinine, Blood 0.38 mg/dL (0.60-1.20); EOSINOPHILS ABSOLUTE AUTO 0.08 K/mm3 (0.00-0.68); EOSINOPHILS PERCENT AUTO 1 % (0-6); Hemoglobin 10.7 g/dL (13.5-17.5); IMMATURE GRAN ABSOLUTE AUTO 0.02 K/mm3 (0.00-0.10); IMMATURE GRAN PERCENT AUTO 0 % (0-1); LYMPHOCYTES ABSOLUTE AUTO 0.73 K/mm3 (0.84-5.20); LYMPHOCYTES PERCENT AUTO 11 % (21-46); MONOCYTES ABSOLUTE AUTO 1.06 K/mm3 (0.16-1.47); MONOCYTES PERCENT AUTO 16 % (4-13); Mean Corpuscular HGB 27.2 pg (26.0-34.0); Mean Corpuscular HGB Conc 30.6 g/dL (31.5-36.5); Mean Corpuscular Volume 89 fL (80-100); Mean Platelet Volume 10.1 fL (9.1-12.4); NEUTROPHILS ABSOLUTE AUTO 4.68 K/mm3 (1.96-9.15); NEUTROPHILS PERCENT AUTO 71 % (41-73); Platelet Count 250 K/mm3 (150-400); Potassium, Blood 3.3 mmol/L (3.5-5.5); RDW Coefficient Variation 17.2 % (11.7-14.2); RDW Standard Deviation 55.6 fL (35.1-46.3); Red Blood Cell Count 3.94 M/mm3 (4.30-5.90)
--- NOTE | 2023-01-02 05:02 | NUR ---
Shift Summary Scant output from pt's NC t/o the shift. No c/o nausea or NG related discomfort. PT NPO except for ice chips. Belly is firm with active bowel sounds. Small amount of output from colostomy. Pharmacy adjusted heparin drip to 15U/KG/HR. C/O back pain, given PRN fentanyl per EMAR. Refused heating pad. Remained in bed t/o shift. Rcving NS @ 75 ml/hr. VSS, slept t/o most of the shift, pleasant and cooperative, AOX4.
--- NOTE | 2023-01-02 16:55 | NUR ---
PT IS A/OX4, PLEASANT AND COOPERATIVE. THE PT HAS AN NG TUBE IN PLACE ON LOW INTERMITTEN SUCTION AT THIS TIME. EARLIER TODAY THE THE PTS NG TUBE WAS CLAMPED FOR A SBFT, HOWEVER, AFTER APROX. 2 HRS THE PT REPORTED THAT HE FELT HE WAS GOING TO THROW UP. THE PTS ABD WAS DISTENDED AND HARD THE SUCTION WAS REAPPLIED AND DR. JONES WAS NOTIFIED. THE PT REPORTED SEVERE BACK PAIN, FENTANYL WAS GIVEN WITH NO RESULTS. DR. GUERRA WAS CALLED NEW ORDER FOR DILAUDID WAS GIVEN AND THE PT HAD IMEDIIATE PAIN RELIEF. PT WAS TAKEN FOR THE 2ND PORTION OF THE FOLLOW THROUGH DR. JONES INSTRUCTED. PT APPEARS TO BE BREATHING EASILY ON RA. CALL LIGHT IN REACH. WILL CONTINUE TO MONITOR AND ASSESS FOR CHANGES
[2023-01-03 04:57] LABS: Albumin, Blood 2.3 g/dL (3.4-5.0); Albumin/Globulin Ratio 0.6 (0.8-1.8); Bilirubin, Total 0.5 mg/dL (0.1-1.0); Calcium, Blood 8.5 mg/dL (8.5-10.1); Creatinine, Blood 0.44 mg/dL (0.60-1.20); Globulin, Blood 3.8 g/dL (2.2-4.0); Magnesium, Blood 1.9 mg/dL (1.6-2.4); Phosphorus, Blood 3.1 mg/dL (2.5-4.9); Potassium, Blood 3.5 mmol/L (3.5-5.5); Total Protein, Blood 6.1 g/dL (6.4-8.2)
--- NOTE | 2023-01-03 05:28 | NUR ---
ACTUARY CLERK SUMMARY PT A/OX4. PT SON AT BEDSIDE AT START OF SHIFT. PASSED 2100 MEDS AND PT WENT OUTSIDE WITH SON. PT ESCORTED BACK TO ROOM BY SECURITY. PT MOOD WAS COOPERATIVE T/O THE SHIFT. HS BLOOD SUGAR 431; MED P/EMAR. CALL TO BAG MACHINE HELPER DR--NO NEW ORDERS. PT REPORTING 10/10 PAIN IN HAND. GIVEN MEDS P/EMAR. PT SAYING HER PAIN IS THE WORST SHE HAS EVER FELT IT. FOUND PT SITTING AT BEDSIDE IN TEARS AND HOLDING HAND. PT REPORTING INTENSE CONSTANT PAIN AND THEN HAVING BRIEF SHARP SHOOTING PAINS THAT TRAVEL UP HER HAND. PT ABLE TO MAKE NEEDS KNOWN. CALL LIGHT IS ACCESSIBLE.
--- NOTE | 2023-01-03 06:40 | NUR ---
SOLUTIONS EXECUTIVE CLOUD SALES SUMMARY PT PLEASANT AND COOPERATIVE. SLEPT WELL T/O THE SHIFT. REPORTED THIS AM THAT HE FEELS BETTER AND PAIN IS MANAGED. PT DENIED NEED FOR PAIN MEDS. NO OUTPUT IN COLOSTOMY. ABD IS FIRM AND TENDER. NG TUBE STILL IN PLACE WITH APROX 350ML OUTPUT THIS SHIFT. NO EPISODES OF N&V. CALLED. UPDATED ON PT CONDITION. SHE IS CURRENTLY IN [place] AND CONSIDERING COMING HOME. WANTS TO SPEAK WITH ; ADVISED WOULD PASS ON TO ONCOMING STAFF. PT A/OX4 AND ABLE TO MADE NEEDS KNOWN. CALL LIGHT ACCESSIBLE.
[2023-01-03 11:10] LABS: Hematocrit 33.1 % (37.0-53.0); Hemoglobin 10.5 g/dL (13.5-17.5); Mean Platelet Volume 9.5 fL (9.1-12.4); Platelet Count 241 K/mm3 (150-400)
--- NOTE | 2023-01-03 11:17 | NUR ---
RN NOTE SMALL BOWEL FOLLOW THROUGH COMPLETED THIS AM. NO IC DESIGN ENGINEER AVAILABLE TODAY - CLINIMAX IV STARTED. NS AT 75CC/HR STOPPED WHILE CLINIMAX INFUSING, SO STOPPED AT 1100HRS. PT STILL NPO WITH NGT TO LIWS. NO C/O NAUSEA THIS AM. HEPARIN GTT STOPPED PER DR GUERRA, SCDS APPLIED.
--- NOTE | 2023-01-03 16:33 | NUR ---
SHIFT SUMMARY MR THOMAS IS OX4. SLEEPING ON AND OFF TODAY. DENIES ANY C/O PAIN OR NAUSEA. NGT TO LIWS WITH MINIMAL OUTPUT. IVF ON HOLD WHILE CLINIMIX INFUSING AT 100CC/HR TO PORT. PLAN FOR TPN STARING 01/04 WHEN STAY CUTTER AVAILABLE. PT NPO. SMALLL AMOUNT OF LIQUID STOOL TO OSTOMY. HE SAID HE FELT BETTER OVERALL THIS MORNING, BUT STILL FEELS WEAK. BED LOW, CALL LIGHT IN REACH.
[2023-01-04 05:18] LABS: Bun/Creatinine Ratio 24.3 (12.0-20.0); Calcium, Blood 8.4 mg/dL (8.5-10.1); Creatinine, Blood 0.41 mg/dL (0.60-1.20); Magnesium, Blood 1.9 mg/dL (1.6-2.4); Potassium, Blood 3.1 mmol/L (3.5-5.5)
--- NOTE | 2023-01-04 16:18 | NUR ---
Spiritual care visit conduted. Patient talks at length abouot his struggles with his cancer and the toll each one of these long stays in the hospital deplete him. We then talk about his friends and family and the love and support that comes at the right moments when he thinks he can't take anymore. Someone comes along and lifts him up. Staff have been wonderful in this way as well. I provide therapeutic listening and prayer. Patient responds well and shows signs of being encouraged.
--- NOTE | 2023-01-04 19:26 | NUR ---
SHIFT SUMMARY PT IS ALERT AND ORIENTED X4. NG TUBE REMOVED AND TPN STARTED TODAY. FULL LIQUID DIET. PT DRANK APPLE JUICE AND HAD A COUPLE BITES OF JELLO BUT STATED THAT IT DIDNT SIT WELL ON HIS STOMACH. NO ACUTE CHANGES THIS SHIFT. BED IS IN THE LOWEST POSITION AND CALL LIGHT IS IN REACH. PT CALLS APPROPRIATELY.
[2023-01-05 04:58] LABS: BASOPHILS ABSOLUTE AUTO 0.03 K/mm3 (0.00-0.23); BASOPHILS PERCENT AUTO 1 % (0-2); EOSINOPHILS ABSOLUTE AUTO 0.06 K/mm3 (0.00-0.68); EOSINOPHILS PERCENT AUTO 1 % (0-6); Hematocrit 31.2 % (37.0-53.0); Hemoglobin 9.7 g/dL (13.5-17.5); IMMATURE GRAN ABSOLUTE AUTO 0.02 K/mm3 (0.00-0.10); IMMATURE GRAN PERCENT AUTO 0 % (0-1); LYMPHOCYTES ABSOLUTE AUTO 0.68 K/mm3 (0.84-5.20); LYMPHOCYTES PERCENT AUTO 12 % (21-46); MONOCYTES PERCENT AUTO 15 % (4-13); Mean Corpuscular HGB 27.2 pg (26.0-34.0); Mean Corpuscular HGB Conc 31.1 g/dL (31.5-36.5); Mean Corpuscular Volume 87 fL (80-100); Mean Platelet Volume 9.9 fL (9.1-12.4); NEUTROPHILS ABSOLUTE AUTO 4.16 K/mm3 (1.96-9.15); NEUTROPHILS PERCENT AUTO 71 % (41-73); Platelet Count 192 K/mm3 (150-400); RDW Coefficient Variation 17.3 % (11.7-14.2); RDW Standard Deviation 55.7 fL (35.1-46.3); Red Blood Cell Count 3.57 M/mm3 (4.30-5.90); White Blood Cell Count 5.85 K/mm3 (4.00-11.30)
[2023-01-05 05:23] LABS: Alanine Aminotransfer (ALT/SGP 13 U/L (12-78); Albumin/Globulin Ratio 0.6 (0.8-1.8); Alk Phos 108 U/L (50-136); Anion Gap 1 mmol/L (6-16); Aspartate Aminotrans (AST/SGOT 10 U/L (12-37); Bilirubin, Total 0.4 mg/dL (0.1-1.0); Blood Urea Nitrogen 10 mg/dL (8-24); Bun/Creatinine Ratio 24.8 (12.0-20.0); CO2, Blood 33 mmol/L (21-32); Calcium, Blood 8.1 mg/dL (8.5-10.1); Chloride, Blood 103 mmol/L (98-108); Globulin, Blood 3.5 g/dL (2.2-4.0); Glomerular Filtration Rate 117 (60-); Glucose, Blood 166 mg/dL (70-99); Phosphorus, Blood 2.5 mg/dL (2.5-4.9); Potassium, Blood 3.2 mmol/L (3.5-5.5); Sodium, Blood 137 mmol/L (136-145); Total Protein, Blood 5.5 g/dL (6.4-8.2); Triglycerides 112 mg/dL (30-160)
--- NOTE | 2023-01-05 05:28 | NUR ---
PT PAINFUL AND NAUSEA WHEN SHIFT STARTED, ABD VERY DISTENDED AND TAUT. IV PAIN MEDS GIVEN X2 THROUGH SHIFT. ABD STILL DISTENDED. TPN RUNNING THROUGH PORT.
--- NOTE | 2023-01-05 15:15 | NUR ---
Spiritual care visit conducted. Patient is flat in his affect today and tells me his frustration with the current diagnosis and prognosis. We talk about his depression over his loss of food, mobility and independence. We talk about different ways to frame the news and look at the future. We discuss his nani, his ability to creatively problem solve and find ways to overcome obstacles. I listen empathically and provide gentle summer camp counselor, spiritual guidance and prayer. Patient responded well and showed signs of an elevated mood and outlook. Patient voices his gratitude.
--- NOTE | 2023-01-05 16:39 | NUR ---
NOTE PT RESTING QUIETLY. HE SEEMS SAD. HES TALKED A LITTLE ABOUT GOING HOME. NOT SURE HOW HE'SGOING TOMANAGE THE TPN. HE HAS NEVER HAD HOMEHEALTH AND DOESN'T UNDERSTAND HOW THEY ARE GOING TO HLEP HIM. OSTOMY PASSING A SMALL AMOUNT OF FLATUS. NO STOOL. HE DENIED FEELING BLOATED. HE HAS BEEN SIPPING ON APPLE JUICE. NO NAUSEA. TRYING REGLAN PO INSTEAD OF IV. HE HAS DENIED NEED TO NARCOTICS FOR PAIN. HE STATES THAT HE IS "MANAGEING". UP SBA. HE IS WEAK. LEFT CHEST MEDIPORT INFUSING TPN AT 90 ML/HR. 1.2 MICRON FILTER ON IV LINE. CONTINUE POR.
--- NOTE | 2023-01-06 06:17 | NUR ---
PT VERY PAINFUL AND AGITATED AT START OF SHIFT. MEDICATED WITH PAIN MEDS, REMINDED PT THAT HE NEEDS TO COMMUNICATE HIS NEEDS FOR MEDICATION, "THEY MAKE ME SLEEPY", MEDICATED FOR PAIN Q4HRS. INCREASE IN OUTPUT FROM COLOSTOMY, 150ML LIQUID STOOL. ABD STILL DISTENDED BUT LESS TAUT.
[2023-01-06 06:57] LABS: Bun/Creatinine Ratio 32.3 (12.0-20.0); Calcium, Blood 8.1 mg/dL (8.5-10.1); Creatinine, Blood 0.4 mg/dL (0.60-1.20); Magnesium, Blood 1.8 mg/dL (1.6-2.4); Phosphorus, Blood 2.9 mg/dL (2.5-4.9); Potassium, Blood 3.5 mmol/L (3.5-5.5)
--- NOTE | 2023-01-06 16:26 | NUR ---
Spiritual care visit conducted. Prayer and emotional/spiritual support given. Patient displayed evidence of uplifted spirits.
--- NOTE | 2023-01-06 18:32 | NUR ---
EVENING NOTE PT ALERT. RESTING QUIETLY. HE HAS DECLINED THE NEED FOR PAIN MEDICATION TODAY. TALKED WITH DR GUERRA AND STARTED HIM ON A FENTAYL PATCH 12 MCG. PT STATES HIS STOMACH PAIN IS BETTER. MEDICATED THIS EVENING WITH ZOFRAN IV X1. HE HAS BEEN SIPPING ON WATER. THERE IS A SMALL AMOUNT OF BROWN LIQUID IN HIS OSTOMY. HE HAS BURPED HIS OSTOMY X2. HE TRIED TO PARTICIPATE WITH PHYSICAL THERAPY TODAY BUT HE GOT DIZZY WITH STANDING. HE DOES STAND AT BEDSIDE AND USE THE URINAL. VSS. CONTINUE POC.
[2023-01-07 05:17] LABS: Bun/Creatinine Ratio 28.6 (12.0-20.0); Calcium, Blood 8.6 mg/dL (8.5-10.1); Creatinine, Blood 0.46 mg/dL (0.60-1.20); Magnesium, Blood 1.9 mg/dL (1.6-2.4); Phosphorus, Blood 3.1 mg/dL (2.5-4.9); Potassium, Blood 3.8 mmol/L (3.5-5.5)
--- NOTE | 2023-01-07 05:41 | NUR ---
PATIENT WAS VERY PAINFUL TONIGHT, N/V TREATED PER MAR. OSTOMY OUTPUT TOO SMALL TO RECORD, BURPED BY PATIENT. ABD ROUND, FIRM, AND GUARDED. NO OTHER CHANGES TO REPORT.
--- NOTE | 2023-01-07 15:07 | NUR ---
Spoke with Dr Partida earlier today and discussed case. Conversation has been started with Pt regarding D/C plans and recommendation to consider AIM program. Pt resting in bed and reports 1/10 pain. Pt reports at this point no benefit from Fentanyl Patch. Instructed on potential time required for therapeutic effect. Engaged in therapeutic conversation regarding goals of . Listened as Pt still processing information provided by hospitalist. He reports plan to talk with Dr Starr further. Discussed [facility] program for consideration. Provided brief and gentle education on palliative program. Pt expresses interest and requests for solar sales representative and assessor for AIM program to come speak with him and his . Continued supportive visit. Spoke with RN Mariam Casas and discussed case. Potential plan for Pt to D/C home with TPN and home health Wednesday pending [facility] availability. Spoke with Dr Partida and discussed current pain regimen. Dr Partida will evaluate pain regimen tomorrow. Spoke with Arie from [facility] and relayed Pt's interest. They will call spouse and set a time to visit. Palliative Care will remain available
--- NOTE | 2023-01-07 15:55 | NUR ---
Spiritual care visit conducted. Patient tells me that he is told that he is going home to by his doctor. He says that his was in the room and heard the news and is now trying to owrk out the details of setting up a hospital bed and other supplies to prepare for his d/c. Patient is tearful and said that he had a few tough conversation with his adult children expressing this unfortunate news. He tells me his concerns about his not being able to manage their house and 11 acres. He shares about his fears about what his body will do and how much it will hurt as the disease progresses. Patient responds well to therapeutic listening, being challenged to ask the medical radiation tech his questions, pastoral deputy chief counsel and prayer. I will continue to remain available to patient and family.
--- NOTE | 2023-01-07 18:13 | NUR ---
NOTE PT AWAKE.CARE MEETING WITH DR GUERRA, AND PT. THEY TALKED ABOUT THE TERMINALITY AND POSSIBLE HOSPICE FOR PT. PT WAS RECEPTIVE TOT HE INFORMATION. WAS UPSET BUT AWARE OF HIS DECLINE. AFTER EVERYONE LEFT. HE TALKED WITH DIESEL SERVICE TECHNICIAN AND PALATIVE CARE. 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 HE ACTUALLY STATED " WHEN I ." HE IS TALKING ABOUT WHAT HE WANTS TO TRY AND DO STILL. HE STATED THAT HE HAS A LOT OF SUPPORT AT HOME. HE REALLY WANTS TO GO FISHING ON HIS BOAT 1 MORE TIME. CONTINUE POC.
[2023-01-08 06:13] LABS: Bun/Creatinine Ratio 32.7 (12.0-20.0); Calcium, Blood 8.3 mg/dL (8.5-10.1); Creatinine, Blood 0.46 mg/dL (0.60-1.20); Potassium, Blood 4.1 mmol/L (3.5-5.5)
--- NOTE | 2023-01-08 06:47 | NUR ---
Shift Summary Pt on TPN, remained in bed t/o shift. C/O pain below ribs, abdoment in back, medicated per EMAR. No c/o nausea. Scant ostomy output. PT to d/c soon home on TPN with the help of home health. AOx4, vss, pleasant and cooperative.
--- NOTE | 2023-01-08 13:29 | NUR ---
Spoke with BIJAN Casas and discussed case. Pt's spouse requesting assistance with DPOA. Joint visit with Yessenia. Pt resting in bed upon arrival. Pt's spouse has left for the day. Pt shows DPOA that spouse was inquiring about. Instructed that unable to assist with completing documents as this RN is not trained in documents and is not an broadcast operations director. Instructed Pt once he and spouse completes documents hospital notary can be provided. BIJAN Becerra discusses D/C plan for possibly tomorrow with RN from [facility] to meet him at his home to instruct on IV nutrition. Pt expresses appreciation and is requesting pain medication. He reports 4/10 pain. Spoke with Pt's Primary RN Yi and relayed Pt's request. Palliative Care will remain available.
--- NOTE | 2023-01-08 16:07 | NUR ---
SHIFT SUMMARY PT IS ALERT AND ORIENTED X4. TPN RUNNING, NPO WITH SIPS AND CHIPS. PT NOT TOLORATING SIPS OR CHIPS. PLAN OF CARE DISCUSSED WITH ATTENDING. SEE EMAR AND NOTES. PT REPORTS BREAK THROUGH PAIN STARTING IN HIS LOWER ABDOMEN. TREATED PER EMAR. NO ACUTE CHANGES THIS SHIFT. PLAN IS DISCHARGE HOME WITH HOME HEALTH TOMORROW. BED IS IN THE LOWEST POSITION. CALL LIGHT IS IN REACH. PT IS APPROPRIATE AND CALLS WITH NEEDS
--- NOTE | 2023-01-09 06:35 | NUR ---
Shift Summary Pt c/o severe R flank pain, medicated per EMAR. Positioning pt on his side on pillows also helped with pain. Pt is strict NPO as any intake will make him nauteous, rcving TPN nutrition through medip[facility]. This AM around 0330 pt is experincing N/V, zofran did not help. Emesis is thin and dark green, pt states the green is from mouthwash. Pt also experiencing hiccup complexes which he states can make it difficult to breathe. The hiccups seem to come and go with the nausea. Pt is still experiencing nausea near the end of the shift. Will pass info to day nurse. During assessment I noticed L pedal pulse is very faint while R pedal pulse is strong. No other S/S of DVT. AOx4, VSS.
[2023-01-09] MEDS ORDERED: ACET120S PR ×2 (12:34)
[2023-01-09] MEDS ORDERED: ENOX80I SC ×2 (12:35)
[2023-01-09] MEDS ORDERED: FENTANYL1 EA10 TOP ×2 (12:35)
[2023-01-09] MEDS ORDERED: RELISTOR12 MG/0.1 SC ×2 (12:36)
[2023-01-09] MEDS ORDERED: [UNRECOGNIZED DRUG - OTHER] ×2 (12:37)
[2023-01-09] MEDS ORDERED: PHENERGAN25 MG PR ×2 (12:39)
--- NOTE | 2023-01-09 13:14 | NUR ---
DISCHARGE PT DISCHARGED HOME TO HOME HEALTH TODAY. TRANSFERED BY AMBULANCE. PT IS ALERT AND ORIENTED X4, R/A. DISCUSSED DISCHARGE WITH PT. HOME HEALTH TO TAKE OVER CARE.
== END 2023-01-09 13:07 | disposition home health service (06) | DRG 871 ==
LOC: ER 12:35 → ERHOLD 17:39 → MEDS 17:39
PROVIDERS: Internal Medicine; Student in an Organized Health Care Education/Training Program; Surgery; ADMIT Internal Medicine
PROC: 3E03329 Introduction of Other Anti-infective into Peripheral Vein, Percutaneous Approach (ICD-10-PCS; 2022-12-24)
PROC: 0W993ZX Drainage of Right Pleural Cavity, Percutaneous Approach, Diagnostic (ICD-10-PCS; 2022-12-25)
PROC: 0DH67UZ Insertion of Feeding Device into Stomach, Via Natural or Artificial Opening (ICD-10-PCS; principal; 2022-12-28)
PROC: 3E0336Z Introduction of Nutritional Substance into Peripheral Vein, Percutaneous Approach (ICD-10-PCS; 2022-12-29)
PROC: BD13ZZZ Fluoroscopy of Small Bowel (ICD-10-PCS; 2023-01-03)
PROC: 3E0G76Z Introduction of Nutritional Substance into Upper GI, Via Natural or Artificial Opening (ICD-10-PCS; 2023-01-04)
DX: A41.9 Sepsis, unspecified organism (principal); E43 Unspecified severe protein-calorie malnutrition; J18.9 Pneumonia, unspecified organism; J96.01 Acute respiratory failure with hypoxia; C18.1 Malignant neoplasm of appendix; R18.8 Other ascites; K56.0 Paralytic ileus; C48.2 Malignant neoplasm of peritoneum, unspecified; K56.609 Unspecified intestinal obstruction, unspecified as to partial versus complete obstruction; J91.8 Pleural effusion in other conditions classified elsewhere; Z51.5 Encounter for palliative care; R65.20 Severe sepsis without septic shock; R11.13 Vomiting of fecal matter; K59.00 Constipation, unspecified; G89.29 Other chronic pain; Z86.711 Personal history of pulmonary embolism; Z86.718 Personal history of other venous thrombosis and embolism; Z79.01 Long term (current) use of anticoagulants; Z93.3 Colostomy status; Z98.890 Other specified postprocedural states; Z79.899 Other long term (current) drug therapy; Z85.038 Personal history of other malignant neoplasm of large intestine; Z90.49 Acquired absence of other specified parts of digestive tract; Z68.24 Body mass index [BMI] 24.0-24.9, adult
CPT/HCPCS: 32555; 36415; 71045; 71046; 71260; 74177; 74250; 80048; 80053; 80069; 81001; 82947; 83615; 83735; 83880; 83986; 84100; 84157; 84478; 85014; 85018; 85025; 85027; 85049; 85610; 85730; 87040; 87070; 87086; 87205; 88108; 88305; 89051; 93005; 93010; 96365-59; 96375-59; 97110; 97162; 97530; 99285-25; A9270; C9113; J0456; J0696; J1170; J1642; J1644; J1650; J2212; J2405; J2550; J2765; J3010; J3411; J3480; J7030; J7050; Q9967

== ENCOUNTER → 2023-01-15 | Outpatient (CLI) | payer MEDICARE, OTHER ==
[~2023-01-15] MED LIST changes: +ACET120S PR; +ENOX80I SC; +FENTANYL1 EA10 TOP; +PHENERGAN25 MG PR; +RELISTOR12 MG/0.1 SC; +[UNRECOGNIZED DRUG - OTHER]
[2023-01-15 19:46] LABS: BASOPHILS ABSOLUTE AUTO 0.02 K/mm3 (0.00-0.23); BASOPHILS PERCENT AUTO 0 % (0-2); EOSINOPHILS ABSOLUTE AUTO 0.02 K/mm3 (0.00-0.68); EOSINOPHILS PERCENT AUTO 0 % (0-6); Hematocrit 31.6 % (37.0-53.0); Hemoglobin 9.8 g/dL (13.5-17.5); IMMATURE GRAN ABSOLUTE AUTO 0.07 K/mm3 (0.00-0.10); IMMATURE GRAN PERCENT AUTO 1 % (0-1); LYMPHOCYTES ABSOLUTE AUTO 0.72 K/mm3 (0.84-5.20); LYMPHOCYTES PERCENT AUTO 7 % (21-46); MONOCYTES ABSOLUTE AUTO 0.96 K/mm3 (0.16-1.47); MONOCYTES PERCENT AUTO 9 % (4-13); Mean Corpuscular HGB 27.5 pg (26.0-34.0); Mean Corpuscular Volume 89 fL (80-100); Mean Platelet Volume 10.9 fL (9.1-12.4); NEUTROPHILS ABSOLUTE AUTO 8.62 K/mm3 (1.96-9.15); NEUTROPHILS PERCENT AUTO 83 % (41-73); Platelet Count 294 K/mm3 (150-400); RDW Coefficient Variation 18.8 % (11.7-14.2); RDW Standard Deviation 61.4 fL (35.1-46.3); Red Blood Cell Count 3.56 M/mm3 (4.30-5.90); White Blood Cell Count 10.41 K/mm3 (4.00-11.30)
[2023-01-15 20:11] LABS: Magnesium, Blood 2.3 mg/dL (1.6-2.4)
[2023-01-15 20:13] LABS: Alanine Aminotransfer (ALT/SGP 19 U/L (12-78); Albumin, Blood 2.2 g/dL (3.4-5.0); Albumin/Globulin Ratio 0.6 (0.8-1.8); Alk Phos 108 U/L (50-136); Anion Gap 3 mmol/L (6-16); Aspartate Aminotrans (AST/SGOT 16 U/L (12-37); Bilirubin, Total 0.7 mg/dL (0.1-1.0); Blood Urea Nitrogen 22 mg/dL (8-24); Bun/Creatinine Ratio 46.2 (12.0-20.0); CO2, Blood 31 mmol/L (21-32); Calcium, Blood 8.6 mg/dL (8.5-10.1); Chloride, Blood 104 mmol/L (98-108); Creatinine, Blood 0.48 mg/dL (0.60-1.20); Globulin, Blood 3.9 g/dL (2.2-4.0); Glomerular Filtration Rate 110 (60-); Glucose, Blood 105 mg/dL (70-99); Phosphorus, Blood 3.4 mg/dL (2.5-4.9); Potassium, Blood 3.8 mmol/L (3.5-5.5); Sodium, Blood 138 mmol/L (136-145); Total Protein, Blood 6.1 g/dL (6.4-8.2); Triglycerides 71 mg/dL (30-160)
== END | disposition home or self-care (01) ==
LOC: LAB SHORT 17:30
PROVIDERS: Internal Medicine
DX: C18.1 Malignant neoplasm of appendix (principal); C78.4 Secondary malignant neoplasm of small intestine; E43 Unspecified severe protein-calorie malnutrition
CPT/HCPCS: 80053; 83735; 84100; 84478; 85025